=== PATIENT | female | born 1965 | race African-American/Black ===

== ENCOUNTER 2016-07-22 07:21 | Inpatient (IN) | payer OTHER ==
[~2016-07-22] VITALS: Ht 167.6 cm; Wt 84.7 kg
[2016-07-22] VITALS (9 sets, daily range): BP systolic 129–212; BP diastolic 74–98; PULSE 53–73; RESP 15–18; TEMP 97.3–98.1; O2SAT 96–100
[~2016-07-22 07:21] MED LIST: LISI-360 PO; ST J81CH PO
--- NOTE | 2016-07-22 07:30 | PD ---
Physical Exam Date Seen by Provider: Jul 22, 2016 Time Seen by Provider: 07:30 Narrative Pt presents with c/o right hand weakness, onset this morning. Pt states her arm feels heavy. This occurred one month ago. Pt states she has been doing new exercises. Denies any other complaints at this time. Pt being bedded at this time. BP significantly elevated. MDM Supervised Visit with JOSÉ LUIS: Elena Hamilton Jul 22, 2016 07:30
[2016-07-22] MEDS ORDERED: SODIUM CHLOR 0.9% 1000 ML INJ 1,000 ML IV ONE (07:40)
--- NOTE | 2016-07-22 07:48 | PD ---
HPI Chief Complaint: Numbness/Tingling Time Seen by Provider: 07:40 Travel History International Travel<30 days: No Contact w/Intl Traveler<30days: No Traveled to known affect area: No History of Present Illness HPI 51-year-old female states she went to bed at 11pm with mild headache only and awoke this morning around 5 when she had difficulty using her phone and her right arm. She denies other complaints. She states she had the symptoms first thing when she woke up. She states that she also feels funny near her right hip area. She confirms prior history of mini strokes with her last in 2009. She states she takes a full aspirin every day but did not take one yet today. She states that she is not on any blood pressure medication and she has had constantly elevated blood pressure lately. She states she cannot get in with her primary care doctor until August. She states that she has no other concurrent complaints other than being tired all over. PFSH Past Medical History Anemia: Yes Asthma: Yes Blood Disorders: No (ANEMIA) Cancer: No Chemotherapy: No Cerebrovascular Accident: Yes (first many stroke 2008, last in 2009; takes Aspirin) Diabetes: No Diminished Hearing: No Endocrine: No Gastrointestinal Disorders: No Glaucoma: No Genitourinary: No Hepatitis: No Hiatal Hernia: No Hypertension: Yes (on no medication) Immune Disorder: No Implanted Vascular Access Dvce: No Medical other: Yes (ANEMIA WITH MULT TRANSFUSIONS) Musculoskeletal: No Psychiatric: Yes ("SOMETIMES" CLAUSTROPHOBIC) Radiation Therapy: No Thyroid Disease: No ?: Unknown : 2 Para: 2 Tubal Ligation: Yes Past Surgical History Abdominal Surgery: No AICD: No Cardiac Surgery: No Ear Surgery: No Endocrine Surgery: No Eye Surgery: No Genitourinary Surgery: No Gynecologic Surgery: Yes (TUBAL LIGATION, UTERINE ABLATION ) Hysterectomy: Yes Joint Replacement: No Neurologic Surgery: No Oral Surgery: No Pacemaker: No Thoracic Surgery: No Social History Alcohol Use: No Tobacco Use: No Substance Use: No Allergies-Medications (Allergen,Severity, Reaction): Coded Allergies: No Known Allergies (Verified , 12/21/15) Reported Meds & Prescriptions Reported Meds & Active Scripts Active Lisinopril 10 mg (Lisinopril) 10 Mg Tab 1 Tab PO DAILY Reported Aspirin 81 mg chewable (Aspirin) 81 Mg Chw 81 Mg PO DAILY Review of Systems Except as stated in HPI: all other systems reviewed are Neg Physical Exam Narrative GENERAL: Well-nourished, well-developed patient. SKIN: Warm and dry. HEAD: Normocephalic and atraumatic. EYES: No injection or drainage. ENT: No nasal drainage noted. NECK: Supple, trachea midline. CARDIOVASCULAR: Regular rate and rhythm RESPIRATORY: Breath sounds equal bilaterally. No accessory muscle use. GASTROINTESTINAL: Abdomen soft, non-tender, nondistended. EXTREMITIES: No edema. NEUROLOGICAL: Awake and alert. Decreased grasp on the right, mild right sided pronator drift, both right and left leg drop after 5 seconds. Normal speech. Data Data Last Documented VS Vital Signs Date Time Temp Pulse Resp B/P Pulse Ox O2 Delivery O2 Flow Rate FiO2 07/22/16 07:44 18 100 07/22/16 07:34 79 Room Air 07/22/16 07:32 98.1 212/98 Orders Activity Bed Rest (07/22/16 ) Electrocardiogram (07/22/16 ) Prothrombin Time / Inr (Pt) (07/22/16 07:40) Act Partial Throm Time (Ptt) (07/22/16 07:40) Complete Blood Count With Diff (07/22/16 07:40) Fibrinogen (07/22/16 07:40) Creatine Kinase (Cpk) (07/22/16 07:40) Troponin I (07/22/16 07:40) Ua Includes Microscopic (07/22/16 07:40) Drug Screen, Random Urine (07/22/16 07:40) Type And Screen (07/22/16 07:40) Ct Brain W/O Iv Contrast(Rout) (07/22/16 ) Chest, Single Ap (07/22/16 ) Blood Glucose (07/22/16 07:40) Ecg Monitoring (07/22/16 07:40) Iv Access Insert/Monitor (07/22/16 07:40) NPO (07/22/16 07:40) Oximetry (07/22/16 07:40) Sodium Chlor 0.9% 1000 Ml Inj (Ns 1000 M (07/22/16 07:40) Comprehensive Metabolic Panel (07/22/16 07:40) Nursing Bedside Swallow Assess .ONCE (07/22/16 08:11) Clopidogrel (Plavix) (07/22/16 08:45) Aspirin (Aspirin) (07/22/16 08:45) Admit To Inpatient (07/22/16 ) Code Status (07/22/16 08:54) Vital Signs (Adult) Q4H (07/22/16 08:54) Activity Oob With Assistance (07/22/16 08:54) Mailroom Messenger / Telemetry .CONTINUOUS (07/22/16 08:54) Diet Heart Healthy (07/22/16 Breakfast) Sodium Chloride 0.9% Flush (Ns Flush) (07/22/16 09:00) Sodium Chloride 0.9% Flush (Ns Flush) (07/22/16 09:00) Acetaminophen (Tylenol) (07/22/16 09:00) Ondansetron Inj (Zofran Inj) (07/22/16 09:00) Magnesium Hydroxide Liq (Milk Of Magnesi (07/22/16 09:00) Temazepam (Restoril) (07/22/16 21:00) Basic Metabolic Panel (Bmp) (07/23/16 06:00) Complete Blood Count With Diff (07/23/16 06:00) Resp Oxygen Nghia C Titrat 1-4 L (07/22/16 ) Pt Request For Service (07/22/16 08:54) Enoxaparin Inj (Lovenox Inj) (07/22/16 10:00) Naloxone Inj (Narcan Inj) (07/22/16 09:00) Inpatient Certification (07/22/16 ) Nih Stroke Scale - Nihss .On admission and discharge (07/22/16 08:57) Neuro Checks Q2HX12,Q4H (07/22/16 08:57) ^ Notify Dr: Other (07/22/16 08:57) Activity Bed Rest (07/22/16 08:57) Nursing Bedside Swallow Assess .ONCE (07/22/16 08:57) Hemoglobin (Hgb) A1c (07/22/16 08:57) Lipid Profile (07/23/16 06:00) Us Carotid Arteries Comp Bilat (07/22/16 ) Holter Monitor Recording (07/22/16 ) Mra Brain W/O Contrast (Cow) (07/22/16 ) Echo 2d Comp W/Dopp(Routine) (07/22/16 ) Sodium Chlor 0.9% 1000 Ml Inj (Ns 1000 M (07/22/16 08:57) Enalaprilat Inj (Vasotec Inj) (07/22/16 09:00) Labetalol Inj (Trandate Inj) (07/22/16 09:00) Aspirin (Aspirin) (07/22/16 10:00) Consult Stoke Navigator (07/22/16 ) Beta Hcg (Quant/Titer) (07/22/16 08:57) Lorazepam Inj (Ativan Inj) (07/22/16 09:00) Admit Order (Ed Use Only) (07/22/16 09:06) Mri Brain W/O Contrast (07/22/16 ) Labs Laboratory Tests Test 07/22/16 07/22/16 07:45 08:50 White Blood Count 5.0 TH/MM3 Red Blood Count 4.86 MIL/MM3 Hemoglobin 13.6 GM/DL Hematocrit 41.5 % Mean Corpuscular Volume 85.4 FL Mean Corpuscular Hemoglobin 28.0 PG Mean Corpuscular Hemoglobin 32.8 % Concent Red Cell Distribution Width 14.1 % Platelet Count 220 TH/MM3 Mean Platelet Volume 8.2 FL Neutrophils (%) (Auto) 39.3 % Lymphocytes (%) (Auto) 48.3 % Monocytes (%) (Auto) 8.1 % Eosinophils (%) (Auto) 3.5 % Basophils (%) (Auto) 0.8 % Neutrophils # (Auto) 2.0 TH/MM3 Lymphocytes # (Auto) 2.4 TH/MM3 Monocytes # (Auto) 0.4 TH/MM3 Eosinophils # (Auto) 0.2 TH/MM3 Basophils # (Auto) 0.0 TH/MM3 CBC Comment DIFF FINAL Differential Comment Prothrombin Time 10.4 SEC Prothromb Time International 0.9 RATIO Ratio Activated Partial 26.8 SEC Thromboplast Time Fibrinogen 253 mg/dL Sodium Level 142 MEQ/L Potassium Level 3.3 MEQ/L Chloride Level 106 MEQ/L Carbon Dioxide Level 29.5 MEQ/L Anion Gap 7 MEQ/L Blood Urea Nitrogen 14 MG/DL Creatinine 0.91 MG/DL Estimat Glomerular Filtration 79 ML/MIN Rate Random Glucose 57 MG/DL Calcium Level 9.2 MG/DL Total Bilirubin 0.7 MG/DL Aspartate Amino Transf 17 U/L (AST/SGOT) Alanine Aminotransferase 26 U/L (ALT/SGPT) Alkaline Phosphatase 85 U/L Total Creatine Kinase 135 U/L Troponin I LESS THAN 0.02 NG/ML Total Protein 8.4 GM/DL Albumin 4.0 GM/DL Blood Type O POSITIVE Antibody Screen NEGATIVE Urine Color LIGHT-YELLOW Urine Turbidity CLEAR Urine pH 5.5 Urine Specific [place] 1.008 Urine Protein NEG mg/dL Urine Glucose (UA) NEG mg/dL Urine Ketones NEG mg/dL Urine Occult Blood TRACE Urine Nitrite NEG Urine Bilirubin NEG Urine Urobilinogen LESS THAN 2.0 MG/DL Urine Leukocyte Esterase NEG Urine RBC 1 /hpf Urine WBC 1 /hpf Urine Squamous Epithelial 1 /hpf Cells Urine Hyaline Casts 1 /lpf Urine Opiates Screen NEG Urine Barbiturates Screen NEG Urine Amphetamines Screen NEG Urine Benzodiazepines Screen NEG Urine Cocaine Screen NEG Urine Cannabinoids Screen NEG MDM Medical Decision Making Medical Screen Exam Complete: Yes Emergency Medical Condition: Yes Medical Record Reviewed: Yes (pmh confirmed) Interpretation(s) EKG shows NSR, no ST elevation or depression, and no arrhythmias. No significant T-wave inversions. CBC & BMP Diagram 07/22/16 07:45 Last [address] 07/22/16 0000 Signed Impressions: Service Date/Time: Friday, July 22, 2016 07:45 - CONCLUSION: Negative for acute process. Edmond Hall MD FACR Chest X-Ray 07/22/16 0000 Signed Impressions: Service Date/Time: Friday, July 22, 2016 07:55 - CONCLUSION: No acute disease. Edmond Hall MD FACR Differential Diagnosis TIA, bleed, stroke, mass Narrative Course Will check blood work, imaging and monitor. Out of stroke alert window given woke up with symptoms with unknown timeline ed workup no acute, will discuss with neurology patient agrees to admit Physician Communication Physician Communication dr fuentes states to check mri brain with and without, dose with 75 mg of plavix in addition to aspirin [address] [place]ar[place] agrees to admit Diagnosis Primary Impression: Right arm weakness Admitting Information Admitting Physician Requests: Admit Delmy Newsome MD Jul 22, 2016 07:48
[2016-07-22 08:03] LABS: BASOPHIL % 0.8 % (0.0-2.0); EOSINOPHIL # 0.2 TH/MM3 (0-0.4); EOSINOPHIL % 3.5 % (0.0-4.0); HEMATOCRIT 41.5 % (35.0-46.0); HEMO FLAGS DIFF FINAL; LYMPH % 48.3 % (9.0-44.0); LYMPHOCYTE # 2.4 TH/MM3 (1.0-4.8); MEAN CELL VOLUME 85.4 FL (80.0-100.0); MEAN CORPUSCULAR HGB CONC 32.8 % (32.0-36.0); MONO % 8.1 % (0.0-8.0); NEUT % 39.3 % (16.0-70.0); PLATELET COUNT 220 TH/MM3 (150-450); RED BLOOD COUNT 4.86 MIL/MM3 (4.00-5.30); RED CELL DISTRIBUTION WIDTH 14.1 % (11.6-17.2)
--- NOTE | 2016-07-22 08:05 | RADRPT ---
EXAM DATE/TIME: 07/22/2016 07:45 [facility] COMPARISON: CT BRAIN W/O CONTRAST, December 21, 2015, 18:14. INDICATIONS : Right upper arm weakness today. RADIATION DOSE: 56.35 CTDIvol (mGy) MEDICAL HISTORY : Hypertension. Stroke SURGICAL HISTORY : Hysterectomy. ENCOUNTER: Initial ACUITY: 1 day PAIN SCALE: 0/10 LOCATION: Bilateral head TECHNIQUE: Multiple contiguous axial images were obtained of the head. Using automated exposure control and adjustment of the mA and/or kV according to patient size, radiation dose was kept as low as reasonably achievable to obtain optimal diagnostic quality images. FINDINGS: CEREBRUM: The ventricles are normal for age. No evidence of midline shift, mass lesion, hemorrha ge or acute infarction. No extra-axial fluid collections are seen. POSTERIOR FOSSA: The cerebellum and brainstem are intact. The 4th ventricle is midline. The cer ebellopontine angle is unremarkable. EXTRACRANIAL: The visualized portion of the orbits is intact. SKULL: The calvaria is intact. No evidence of skull fracture. CONCLUSION: Negative for acute process. Edmond Hall MD FACR on July 22, 2016 at 8:03 Board Certified Radiologist. This report was verified electronically.
--- NOTE | 2016-07-22 08:19 | RADRPT ---
EXAM DATE/TIME: 07/22/2016 07:55 [facility] COMPARISON: No previous studies available for comparison. INDICATIONS : Palpitations, chest pain. Right arm numbness. MEDICAL HISTORY : Cerebrovascular disease. Hypertension. SURGICAL HISTORY : Hysterectomy. ENCOUNTER: Initial ACUITY: 1 day PAIN SCORE: 0/10 LOCATION: Bilateral chest FINDINGS: A single view of the chest demonstrates the lungs to be symmetrically aerated without evidence of mas s, infiltrate or effusion. The cardiomediastinal contours are unremarkable. Osseous structures are intact. CONCLUSION: No acute disease. Edmond Hall MD FACR on July 22, 2016 at 8:17 Board Certified Radiologist. This report was verified electronically.
[2016-07-22 08:21] LABS: ALT (GPT) 26 U/L (10-53); ANION GAP 7 MEQ/L (5-15); AST (GOT) 17 U/L (15-37); BICARBONATE 29.5 MEQ/L (21.0-32.0); BLOOD UREA NITROGEN 14 MG/DL (7-18); CHLORIDE 106 MEQ/L (98-107); GLOMERULAR FILTRATION RATE 79 ML/MIN (>89); POTASSIUM 3.3 MEQ/L (3.5-5.1); SODIUM (NA) 142 MEQ/L (136-145)
[2016-07-22 08:22] LABS: APTT (PATIENT) 26.8 SEC (24.3-30.1); INTERNATIONAL NORMALIZED RATIO 0.9 RATIO; PROTHROMBIN TIME - PATIENT 10.4 SEC (9.8-11.6)
[2016-07-22 08:24] LABS: ALKALINE PHOSPHATASE 85 U/L (45-117); CREATINE KINASE 135 U/L (26-192); TOTAL BILIRUBIN ADULT 0.7 MG/DL (0.2-1.0)
[2016-07-22] MEDS ORDERED: ASPIRIN 325 MG TAB PO ONE (08:45)
[2016-07-22] MEDS ORDERED: CLOPIDOGREL 75 MG TAB PO ONE (08:45)
[2016-07-22] MEDS: SODIUM CHLOR 0.9% 1000 ML INJ 1,000 ML IV SCH ×2 (08:57→23:26)
[2016-07-22] MEDS ORDERED: ONDANSETRON HCL 4 MG/2 ML VIAL IVP PRN (09:00)
[2016-07-22] MEDS ORDERED: SODIUM CHLORIDE 0.9% FLUSH 10 ML FLUSH IV FLUSH PRN (09:00)
[2016-07-22] MEDS ORDERED: NALOXONE HCL 0.4 MG/ML AMP IV PRN (09:00)
[2016-07-22] MEDS ORDERED: MAGNESIUM HYDROXIDE SUSP 30 ML CUP PO PRN (09:00)
[2016-07-22] MEDS ORDERED: LORazepam 2 MG/ML VIAL IV PUSH PRN (09:00)
[2016-07-22] MEDS ORDERED: ACETAMINOPHEN 325 MG TAB PO PRN (09:00)
[2016-07-22] MEDS ORDERED: ENALAPRILAT 1.25 MG/ML VIAL IV PRN (09:00)
[2016-07-22] MEDS ORDERED: LABETALOL HCL 100 MG/20 ML VIAL IV PRN (09:00)
[2016-07-22] MEDS: SODIUM CHLORIDE 0.9% FLUSH 10 ML FLUSH IV FLUSH SCH ×2 (09:05→20:30)
[2016-07-22 09:28] LABS: BLOOD, URINE TRACE (NEG); GLUCOSE,URINE NEG (NEG); HYALINE CAST, URINE 1 /lpf (RARE); KETONE, URINE NEG (NEG); NITRITE,URINE NEG (NEG); PH, URINE 5.5 (5.0-8.5); SQUAMOUS EPITHELIAL CELL URINE 1 /hpf (0-5); URINE COLOR LIGHT-YELLOW (YELLW/STRAW)
[2016-07-22 09:38] LABS: AMPHETAMINE, URINE NEG (NEG); BARBITURATES, URINE NEG (NEG); COCAINE, URINE NEG (NEG)
[2016-07-22] MEDS ORDERED: ASPIRIN 325 MG TAB PO SCH (10:00)
[2016-07-22] MEDS ORDERED: ENOXAPARIN SODIUM 30 MG/0.3 ML SYRINGE SQ SCH (10:00)
--- NOTE | 2016-07-22 10:16 | RADRPT ---
EXAM DATE/TIME: 07/22/2016 09:40 [facility] COMPARISON: No previous studies available for comparison. INDICATIONS : Right sided weakness. MEDICAL HISTORY : Hypertension. SURGICAL HISTORY : Tubal ligation. Hysterectomy. ENCOUNTER: Initial ACUITY: 1 day PAIN SCORE: 0/10 LOCATION: cranial Please note a normal MRA of the brain does not entirely exclude the possibility of a small aneurysm, nor the possibility of distal intracranial vessel disease. TECHNIQUE: 3D time of flight MRA was performed. Source images, multiplanar STS MIP, and 3D volume MIP reconstru ctions were reviewed. FINDINGS: There is excellent visualization of the major intracranial arteries out to the second-order branch ve ssels. There is no evidence for aneurysm, vessel truncation or stenosis, and no evidence for vascula r malformation. CONCLUSION: Negative MRA of the brain. Edmond Hall MD FACR on July 22, 2016 at 10:14 Board Certified Radiologist. This report was verified electronically.
--- NOTE | 2016-07-22 10:18 | RADRPT ---
EXAM DATE/TIME: 07/22/2016 09:40 [facility] COMPARISON: No previous studies available for comparison. INDICATIONS : Right sided weakness. MEDICAL HISTORY : Hypertension. SURGICAL HISTORY : Hysterectomy. Tubal ligation. ENCOUNTER: Initial ACUITY: 1 day PAIN SCORE: 0/10 LOCATION: cranial TECHNIQUE: Multiplanar, multisequence MRI of the brain was performed without contrast. FINDINGS: CEREBRUM: The ventricles are normal for age. No evidence of midline shift, mass lesion, hemorrhage or acute in farction. No extraaxial fluid collections are seen. The pituitary gland and suprasellar cistern are normal in configuration. WHITE MATTER: No significant signal abnormalities are seen in the white matter. POSTERIOR FOSSA: The cerebellum and brainstem are intact. The 4th ventricle is midline. The cerebellopontine angle is unremarkable. The cerebellar tonsils are normal in position. DIFFUSION IMAGING: No focal areas of restricted diffusion are seen. No evidence of acute infarction. EXTRACRANIAL: The visualized portions of the orbits and paranasal sinuses are unremarkable. CONCLUSION: Negative for ischemic changes. Borderline changes of an empty sella.. dEmond Hall MD FACR on July 22, 2016 at 10:15 Board Certified Radiologist. This report was verified electronically.
--- NOTE | 2016-07-22 10:52 | RADRPT ---
EXAM DATE/TIME: 07/22/2016 10:14 [facility] COMPARISON: No previous studies available for comparison. INDICATIONS : Transient ischemic attack. MEDICAL HISTORY : Hypertension. CVA. Asthma. Colitis. Anemia. Anticoagulant therapy, Aspirin. SURGICAL HISTORY : Tubal ligation. Hysterectomy. Fibroid removed. Uterine ablation. Blood transfusions. ENCOUNTER: Initial ACUITY: 1 day PAIN SCORE: 0/10 LOCATION: Bilateral neck PEAK SYSTOLIC VELOCITIES (cm/sec): ICA/CCA RATIO: Right: 1.1 Left: 0.9 ICA: Right: 82 Left: 58 CCA: Right: 77 Left: 67 ECA: Right: 60 Left: 80 VERTEBRAL: Right: 45 antegrade Left: 44 antegrade Elevated flow velocities and ICA/CCA ratios have been found to correlate with increased degrees of vessel stenosis, calculated as percentage of diameter relative to a normal segment of distal ICA/CCA FINDINGS: RIGHT CAROTID: No significant stenosis is visualized. The waveforms are within normal limits. LEFT CAROTID: No significant stenosis is visualized. The waveforms are within normal limits. VERTEBRAL ARTERIES: Antegrade flow is seen in both vertebral arteries. MISCELLANEOUS: None. CONCLUSION: Negative carotid ultrasound. Edmond Hall MD FACR on July 22, 2016 at 10:49 Board Certified Radiologist. This report was verified electronically.
[2016-07-22 11:47] LABS: BETA HCG QUANT 2 MIU/ML (0-5); FREE T4 0.85 NG/DL (0.76-1.46)
[2016-07-22] MEDS ORDERED: GADODIAMIDE PF 287 MG/ML 20 ML VIAL (for RAD MRI) IV ONE (13:37)
--- NOTE | 2016-07-22 13:57 | RADRPT ---
EXAM DATE/TIME: 07/22/2016 13:26 [facility] COMPARISON: No previous studies available for comparison. INDICATIONS : Right side weakness. CONTRAST: 20 cc Omniscan (gadodiamide) IV MEDICAL HISTORY : Hypertension. SURGICAL HISTORY : Hysterectomy. Tubal ligation. ENCOUNTER: Initial ACUITY: 1 day PAIN SCORE: 0/10 LOCATION: neck Percent stenosis is calculated using the diameter of the stenotic region over the diameter of the nor mal distal internal carotid artery. TECHNIQUE: Bolus infused MRA of the extracranial circulation was performed using a neurovascular coil. Post processing was performed including rotating subvolume maximum intensity projections of ea ch carotid artery, rotating full volume maximum intensity projections of both carotid arteries, sagit fred and coronal sliding thin slab reformations of each carotid artery, and left oblique sliding thin slab reformation through the aortic arch to include the origin of the arch branch vessels. FINDINGS: AORTIC ARCH: There is a three vessel origin of the great vessels from the aorta. No evidence of ostial narrowing. RIGHT CAROTID: The common carotid artery is intact. The carotid bulb has a normal configuration without ulceration or narrowing. The internal carotid artery lumen is smooth without stenosis. The external carotid artery is intact. LEFT CAROTID: The common carotid artery is intact. The carotid bulb has a normal configuration w ithout ulceration or narrowing. The internal carotid artery lumen is smooth without stenosis. The e xternal carotid artery is intact. VERTEBRALS: The vertebral arteries have a symmetric diameter. No stenotic lesions are seen. CONCLUSION: Negative for hemodynamically significant stenosis. Edmond Hall MD FACR on July 22, 2016 at 13:55 Board Certified Radiologist. This report was verified electronically.
--- NOTE | 2016-07-22 15:35 | HHI.HP ---
HPI Service [facility] Primary Care Physician Arun Pacheco M.D. Admission Diagnosis right arm weakness Chief Complaint: right arm weakness Travel History International Travel<30 Days: No Contact w/Intl Traveler <30 Da: No Traveled to Known Affected Are: No History of Present Illness Patient is a pleasant 51-year-old female who presented to the ER with complaint of right arm weakness. Patient reports that she had a mild headache when she went to bed last night at 11 PM upon awakening at 5 PM patient had difficulty using her right arm to utilize her phone. Patient states that she has chronically elevated blood pressure but does not take any medication for this. Patient gives history of prior stroke. However, I have reviewed the patient's records from 2008 in [facility]. At that time patient also complained of weakness. Patient was anemic due to EPIDEMIOLOGIST issues and subsequently had a hysteroscopy with dilation and curettage in [address] Wright. Patient was seen in [address] Silva as well as Dr. Wheatley. At that time, neurology felt the patient likely had conversion disorder and there was no evidence of CVA. However, from Dr. Wheatley' note 01/08/17 - pt recieved coumadin [id number] - in 2010 pt started ASA - in 2010 pt resumed coumadin, but then again went back to ASA 325mg - Pt continued to have difficulties with uterine bleeding and underwent hysterectomy in 2013 - negative anti-phospholipid antibodies in 2008 - Pt never seems to have had residual neurologic deficits from these prior neurologic episodes. Review of Systems Constitutional: DENIES: Diaphoretic episodes, Fatigue, Fever, Weight gain, Weight loss, Chills, Dizziness, Change in appetite, Night Sweats Endocrine: DENIES: Heat/cold intolerance, Polydipsia, Polyuria, Polyphagia Eyes: DENIES: Blurred vision, Diplopia, Eye inflammation, Eye pain, Vision loss , Photosensitivity, Double Vision Ears, nose, mouth, throat: DENIES: Tinnitus, Hearing loss, Vertigo, Nasal discharge, Oral lesions, Throat pain, Hoarseness, Ear Pain, Running Nose, Epistaxis, Sinus Pain, Toothache, Odynophagia Respiratory: DENIES: Apneas, Cough, Snoring, Wheezing, Hemoptysis, Sputum production, Shortness of breath Cardiovascular: DENIES: Chest pain, Palpitations, Syncope, Dyspnea on Exertion , PND, Lower Extremity Edema, Orthopnea, Claudication Gastrointestinal: DENIES: Abdominal pain, Black stools, Bloody stools, BRB per rectum, Constipation, Diarrhea, GERD, Nausea, Reflux, Vomiting, Difficulty Swallowing, Anorexia Genitourinary: DENIES: Abnormal vaginal bleeding, Dysmenorrhea, Dyspareunia, Sexual dysfunction, Urinary frequency, Urinary incontinence, Urgency, Hematuria , Dysuria, Nocturia Musculoskeletal: DENIES: Joint pain, Muscle aches, Stiffness, Joint Swelling, Back pain, Neck pain Integumentary: DENIES: Abnormal pigmentation, Pruritus, Rash, Nail changes, Breast masses, Breast skin changes, Nipple discharge Hematologic/lymphatic: DENIES: Bruising, Lymphadenopathy Immunologic/allergic: DENIES: Eczema, Urticaria Neurologic: COMPLAINS OF: Headache, Localized weakness, DENIES: Abnormal gait , Paresthesias, Seizures, Speech Problems, Tremor, Poor Balance Psychiatric: DENIES: Anxiety, Confusion, Mood changes, Depression, Hallucinations, Agitation, Suicidal Ideation, Homicidal Ideation, Delusions, History of Bipolar, History of Schizophrenia Past Family Social History Past Medical History 1) anemia, which seems to have resolved following hysterectomy 2) prior neurological episode in 2008 - I have reviewed patient's hospitalization records from 2008 - At that time neurology was not convinced that patient had a CVA, and felt the more likely explanation was conversion disorder - pt was subsequently placed on coumadin for some time, see HPI 3) hypertension Past Surgical History 1) hysteroscopy with dilation and curettage [place] [address] Wright 2) tubal ligation Reported Medications Reported Meds & Active Scripts Active Lisinopril 10 mg (Lisinopril) 10 Mg Tab 1 Tab PO DAILY Reported Aspirin 81 mg chewable (Aspirin) 81 Mg Chw 81 Mg PO DAILY Allergies: Coded Allergies: No Known Allergies (Verified , 12/21/15) Family History Noncontributory Social History - No tobacco use - No alcohol use - No illicit street drugs Physical Exam Vital Signs Vital Signs Date Time Temp Pulse Resp B/P Pulse Ox O2 Delivery O2 Flow Rate FiO2 07/22/16 12:51 62 16 154/92 98 07/22/16 10:58 68 16 144/89 99 Room Air 07/22/16 09:30 72 17 145/74 98 Room Air 07/22/16 07:44 18 100 07/22/16 07:34 79 18 Room Air 07/22/16 07:32 98.1 72 15 212/98 98 Physical Exam GENERAL: This is a well-nourished, well-developed patient, in no apparent distress. SKIN: No rashes, ecchymoses or lesions. Cool and dry. HEAD: Atraumatic. Normocephalic. No temporal or scalp tenderness. EYES: Pupils equal round and reactive. Extraocular motions intact. No scleral icterus. No injection or drainage. ENT: Nose without bleeding, purulent drainage or septal hematoma. Throat without erythema, tonsillar hypertrophy or exudate. Uvula midline. Airway patent. NECK: Trachea midline. No JVD or lymphadenopathy. Supple, nontender, no meningeal signs. CARDIOVASCULAR: Regular rate and rhythm without murmurs, gallops, or rubs. RESPIRATORY: Clear to auscultation. Breath sounds equal bilaterally. No wheezes , rales, or rhonchi. GASTROINTESTINAL: Abdomen soft, non-tender, nondistended. No hepato-splenomegaly , or palpable masses. No guarding. MUSCULOSKELETAL: mild RLE weakness, mild RUE, Per pt she has been able to ambulate to the bathroom. NEUROLOGICAL: Awake and alert. Cranial nerves II through XII intact. Motor and sensory grossly within normal limits. Five out of 5 muscle strength in all muscle groups. Normal speech. Laboratory Laboratory Tests Test 07/22/16 07/22/16 07/22/16 07:45 08:50 10:46 White Blood Count 5.0 Red Blood Count 4.86 Hemoglobin 13.6 Hematocrit 41.5 Mean Corpuscular Volume 85.4 Mean Corpuscular Hemoglobin 28.0 Mean Corpuscular Hemoglobin 32.8 Concent Red Cell Distribution Width 14.1 Platelet Count 220 Mean Platelet Volume 8.2 Neutrophils (%) (Auto) 39.3 Lymphocytes (%) (Auto) 48.3 Monocytes (%) (Auto) 8.1 Eosinophils (%) (Auto) 3.5 Basophils (%) (Auto) 0.8 Neutrophils # (Auto) 2.0 Lymphocytes # (Auto) 2.4 Monocytes # (Auto) 0.4 Eosinophils # (Auto) 0.2 Basophils # (Auto) 0.0 CBC Comment DIFF FINAL Differential Comment Prothrombin Time 10.4 Prothromb Time International 0.9 Ratio Activated Partial 26.8 Thromboplast Time Fibrinogen 253 Sodium Level 142 Potassium Level 3.3 Chloride Level 106 Carbon Dioxide Level 29.5 Anion Gap 7 Blood Urea Nitrogen 14 Creatinine 0.91 Estimat Glomerular Filtration 79 Rate Random Glucose 57 Calcium Level 9.2 Total Bilirubin 0.7 Aspartate Amino Transf 17 (AST/SGOT) Alanine Aminotransferase 26 (ALT/SGPT) Alkaline Phosphatase 85 Total Creatine Kinase 135 Troponin I LESS THAN 0.02 Total Protein 8.4 Albumin 4.0 Blood Type O POSITIVE Antibody Screen NEGATIVE Crossmatch Leukocyte-Reduced Red Blood Cells Blood Bank Comment Urine Color LIGHT-YELLOW Urine Turbidity CLEAR Urine pH 5.5 Urine Specific [place] 1.008 Urine Protein NEG Urine Glucose (UA) NEG Urine Ketones NEG Urine Occult Blood TRACE Urine Nitrite NEG Urine Bilirubin NEG Urine Urobilinogen LESS THAN 2.0 Urine Leukocyte Esterase NEG Urine RBC 1 Urine WBC 1 Urine Squamous Epithelial 1 Cells Urine Hyaline Casts 1 Urine Opiates Screen NEG Urine Barbiturates Screen NEG Urine Amphetamines Screen NEG Urine Benzodiazepines Screen NEG Urine Cocaine Screen NEG Urine Cannabinoids Screen NEG Ammonia 21 Vitamin B12 Level 227 Folate 11.7 Free Thyroxine 0.85 Thyroid Stimulating Hormone 1.330 3rd Gen Human Chorionic Gonadotropin, 2 Quant Result Diagram: 07/22/16 0745 07/22/16 0745 Imaging Last Impressions Neck Magnetic Resonance Angiography 07/22/16 1253 Signed Impressions: Service Date/Time: Friday, July 22, 2016 13:26 - CONCLUSION: Negative for hemodynamically significant stenosis. Edmond Hall MD FACR Head Magnetic Resonance Angiography 07/22/16 0000 Signed Impressions: Service Date/Time: Friday, July 22, 2016 09:40 - CONCLUSION: Negative MRA of the brain. Edmond Hall MD FACR Head CT 07/22/16 0000 Signed Impressions: Service Date/Time: Friday, July 22, 2016 07:45 - CONCLUSION: Negative for acute process. Edmond Hall MD FACR Chest X-Ray 07/22/16 0000 Signed Impressions: Service Date/Time: Friday, July 22, 2016 07:55 - CONCLUSION: No acute disease. Edmond Hall MD FACR Carotid Artery Ultrasound 07/22/16 0000 Signed Impressions: Service Date/Time: Friday, July 22, 2016 10:14 - CONCLUSION: Negative carotid ultrasound. Edmond Hall MD FACR Brain MRI 07/22/16 0000 Signed Impressions: Service Date/Time: Friday, July 22, 2016 09:40 - CONCLUSION: Negative for ischemic changes. Borderline changes of an empty sella.. Edmond Hall MD FACR Septic Shock Reassessment Heart: Regular rate and rhythm Lungs: Clear Skin: Warm Peripheral Pulses: Bounding Right Radial Bounding Left Radial Bounding Right Popliteal Bounding Left Popliteal Bounding Right Dorsalis Pedis Bounding Left Dorsalis Pedis Bounding Right Posterior Tibial Bounding Left Posterior Tibial Capillary Refill: Brisk Assessment and Plan Problem List: (1) Right arm weakness Status: Acute Plan: - Patient had episode of weakness in 2008. At that time neurology was not convinced of CVA and felt that patient likely had conversion disorder - CT brain (07/22/16) no acute findings - MRI brain (07/22/16) no acute findings - MRA brain (07/22/16) no acute findings - Neck MRA (07/22/16) no hemodynamically significant stenosis - Bilateral carotid ultrasound (07/22/16) no hemodynamically significant stenosis - TSH, free T4, B-12, folate, ammonia --> wnl - RPR --> pending - Await Neurology consult - Consult Physiatry - fasting lipid panel in AM - HgA1C --> pending - ASA - Coumadin per Neurology - Heparin per Neurology - Permissive HTN - Echocardiogram --> pending - anticipate d/c to home in 1-2 days - hypercoag panel ordered by neurology (2) HTN (hypertension) Status: Chronic Plan: - lisinopril is on hold for permissive HTN - prn IV vasotec - PRN IV trandate Physician Certification 2 Midnight Certification Type: Admission for Inpatient Services Order for Inpatient Services The services are ordered in accordance with Medicare regulations or non- Medicare payer requirements, as applicable. In the case of services not specified as inpatient-only, they are appropriately provided as inpatient services in accordance with the 2-midnight benchmark. Estimated LOS (days): 3 3 days is the estimated time the patient will need to remain in the hospital, assuming treatment plan goals are met and no additional complications. Post-Hospital Plan: Home Problem Qualifiers (1) HTN (hypertension): Qualified Code: I10 - Essential hypertension Nguyễn Hanson DO Jul 22, 2016 15:35
[2016-07-22] MEDS ORDERED: WARFARIN SOD 5 MG TAB PO SCH (16:00)
[2016-07-22 16:32] LABS: TOTAL PROTEIN SPE 7.4 GM/DL (6.0-7.6)
[2016-07-22] MEDS: HEPARIN SODIUM - SQ 10,000 UNITS/ML VIAL SQ SCH ×2 (16:47→20:30)
[2016-07-22] MEDS ORDERED: TEMAZEPAM 15 MG CAP PO PRN (21:00)
--- NOTE | 2016-07-22 22:32 | MB ---
cc: RAN MAYNARD M.D. DATE OF CONSULTATION 07/22/2016 REASON FOR CONSULTATION A 51-year-old right-handed woman with a history of hypertension. She was on Coumadin at one time after a stroke she tells me in 2008. Two miscarriages. A DVT when she was 20. Takes 325 of aspirin a day. She has occasional headaches but not severe. When she was younger she used to have some migraine headaches. headaches. In 2008 she tells me she had a stroke with a headache and high blood pressure and then a TIA in 2009 again with a headache and a blood pressure up. This morning she woke up and her right hand did not seem to work right and walking her right leg seemed off. She had a headache on the top of her head and the back of her head which was fairly severe. She says she had some palpitations about several weeks ago which were brief. No panic attacks or depression. SOCIAL HISTORY She is not a smoker. Occasionally is a drinker. Lives by herself. No drugs. FAMILY HISTORY Positive for cancer, positive for seizures in a daughter and a nephew. Positive for stroke in multiple people including an aunt when she was in her 40s. ALLERGIES NO KNOWN DRUG ALLERGIES. MEDICATIONS 1. Lisinopril. 2. She is on 325 of aspirin a day. REVIEW OF SYSTEMS She denied any diabetes, hypercholesterolemia, UT, stent angioplasty, A fib, CABG, renal, hepatic, pulmonary disease, thyroid disease, lupus, ulcer, cancer, seizure. PAST MEDICAL HISTORY As above. PHYSICAL EXAMINATION VITAL SIGNS: Initially blood pressure is high as 212/98, came down to 144/98, 16, 68, afebrile. She has been in sinus rhythm. NECK: There were no carotid bruits. HEART: Regular rhythm. I did not detect a murmur. NEUROLOGIC: Pupils are equal. Visual abarca are full. Extraocular movements intact without nystagmus. Face is symmetrical with normal sensation. Tongue midline. No drift. Normal strength in the upper and lower extremities bilaterally except the right iliopsoas and right tibialis anterior she has some slight weakness there, about a 4+/5. There is some giveaway weakness, hard to say. Fast finger movements, clumsy on the right hand. DTRs are 2+ symmetrical. Toes were downgoing bilaterally. Pinprick is intact throughout. She is not ataxic on finger to nose. She was seen by Dr. Silva in 2008 with a syncopal spell, some protrusion of the tongue, confusion, unable to give any history, possible left-sided symptoms. She had a blood transfusion because her hemoglobin was only 4.4. Carotid ultrasound was normal. MRI of the brain was normal. MRA [place] was normal. She had a large mass on her pelvic ultrasound with fibroid. There was a question of a conversion reaction. She had a markedly elevated antiphospholipid antibody, IgM 82. Lupus anticoagulant was negative. She had an EEG done at that time. A couple of small sharp spikes on the left with sleep. She also saw a psychiatrist, that she had an adjustment disorder. Nothing major. She had an echocardiogram back then mild mitral regurgitation, otherwise normal. LA size was normal. Ejection fraction 72%. A Holter monitor back in 2008. Several 1.6 second pauses, otherwise negative. No atrial fibrillation was noted. She had a carotid ultrasound today that was normal, as was an MRA [place] and a CT scan. MRI of the brain was entirely normal. I reviewed those films. No evidence for old or new stroke. MRI in 2009 was also done that was also normal. She was seen in September of 2009 with a stroke alert, abrupt weakness in the left arm and leg [place] Neurology was consulted. Evidently did not see neurology and subsequently discharged. She has had negative RPRs in the past. FRANCISCO has been negative. Antiphospholipid IgM antibodies been negative. Anti-phosphatidyl serine IgM antibody was positive at 67. A cardiolipin IgM antibody positive at 95 back in 2008. Urine drug screens have been negative. UA has been negative. Basic metabolic profile has been normal. LFTs normal. CPK, troponin negative on this admission. B12 low at 227, low in 2009 at 165, so it looks like she was probably on some injections at one time and now no longer. Folate has been normal on this admission. Thyroid is normal on this admission. HCG is normal. Hemoglobin A1c is pending. GFR is normal. LDL cholesterol was high at 112 ii 2009, pending now. Methylmalonic acid was normal in 2008. CBC is unremarkable. Sed rate was 63 in 2009. Factor V Leiden was normal at that time. ABG was normal in 2009. 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 One which in 2009 sounded like a major TIA. At this time she still has some deficit on the right side even though MRI is negative. It may be that she needs to be anticoagulated. We will recheck her anticardiolipin antibodies and for now restart her on Coumadin. I will be following her with you in the hospital. MD LESLIE Schreiber/JEAN PAUL /12:38 PM /10:00 PM
[2016-07-23 00:34] VITALS: BP 140/84; PULSE 70; RESP 18; TEMP 97.3; O2SAT 98
[2016-07-23 05:39] VITALS: BP 142/92; PULSE 66; RESP 20; TEMP 96.5; O2SAT 97
[2016-07-23] MEDS ORDERED: ASPIRIN 325 MG TAB PO SCH (08:00)
[2016-07-23] MEDS ORDERED: ASPIRIN EC 81 MG TABEC PO SCH (08:00)
[2016-07-23 08:06] LABS: INTERNATIONAL NORMALIZED RATIO 0.9 RATIO; PROTHROMBIN TIME - PATIENT 10.3 SEC (9.8-11.6)
[2016-07-23] MEDS: HEPARIN SODIUM - SQ 10,000 UNITS/ML VIAL SQ SCH (08:07)
[2016-07-23 08:10] LABS: AUTOMATED NEUTROPHIL # 1.3 TH/MM3 (1.8-7.7); BASOPHIL % 0.8 % (0.0-2.0); EOSINOPHIL # 0.3 TH/MM3 (0-0.4); EOSINOPHIL % 5.9 % (0.0-4.0); HEMATOCRIT 37.5 % (35.0-46.0); HEMO FLAGS DIFF FINAL; LYMPH % 50.5 % (9.0-44.0); LYMPHOCYTE # 2.2 TH/MM3 (1.0-4.8); MEAN CELL VOLUME 85.2 FL (80.0-100.0); MEAN CORPUSCULAR HEMOGLOBIN 27.7 PG (27.0-34.0); MEAN CORPUSCULAR HGB CONC 32.5 % (32.0-36.0); MONO % 11.5 % (0.0-8.0); NEUT % 31.3 % (16.0-70.0); PLATELET COUNT 220 TH/MM3 (150-450); RED CELL DISTRIBUTION WIDTH 13.9 % (11.6-17.2); WHITE BLOOD COUNT 4.3 TH/MM3 (4.0-11.0)
[2016-07-23 08:20] VITALS: BP 134/88; PULSE 62; RESP 18; TEMP 97.5; O2SAT 99
--- NOTE | 2016-07-23 08:29 | HHI.PR ---
Objective Vital Signs Date Time Temp Pulse Resp B/P Pulse Ox O2 Delivery O2 Flow Rate FiO2 07/23/16 08:20 97.5 62 18 134/88 99 07/23/16 05:39 96.5 66 20 142/92 97 07/23/16 00:34 97.3 70 18 140/84 98 07/22/16 22:27 73 07/22/16 20:23 97.8 64 18 129/76 98 07/22/16 17:54 96 21 07/22/16 16:00 97.3 53 16 132/81 96 07/22/16 12:51 62 16 154/92 98 07/22/16 10:58 68 16 144/89 99 Room Air 07/22/16 09:30 72 17 145/74 98 Room Air I/O 07/22/16 07/22/16 07/22/16 07/23/16 07/23/16 07/23/16 07:00 15:00 23:00 07:00 15:00 23:00 Intake Total 1040 ml 526 ml Balance 1040 ml 526 ml Intake Oral 480 ml IV Total 560 ml 526 ml # Voids 1 3 2 # Bowel Movements 0 0 Result Diagram: 07/23/16 0722 07/22/16 0745 Other Results mra neck neg Objective Remarks still weak rle ip but numbness gone walking nl Assessment and Plan Assessment and Plan imp a lot of disussion with PT and dr cam[place] and dr fierro i dw all whether she could be funtional on not denies depression and mult mri neg eeg one left sharp no hx sz anticardiolipin ab positive x2 2009 phospholipid panel i think best course is coumadin and rechecking panels and if neg now could do plavix when it comes back if neg ow coumadin for now other possibility a hemiplegic migraine type problem Jesse Goodman MD Jul 23, 2016 08:29
[2016-07-23 08:32] LABS: BICARBONATE 29.3 MEQ/L (21.0-32.0); HDL CHOLESTEROL 59.9 MG/DL (40.0-60.0); POTASSIUM 3.9 MEQ/L (3.5-5.1)
[2016-07-23 09:00] VITALS: PULSE 58
[2016-07-23] MEDS: SODIUM CHLORIDE 0.9% FLUSH 10 ML FLUSH IV FLUSH SCH (09:00)
[2016-07-23 09:28] LABS: HEMOGLOBIN A1b 1.5 %; HEMOGLOBIN Ao 85.9 %; HEMOGLOBIN LA1C 1.8 %; HEMOGLOBIN P3 3.6 %
--- NOTE | 2016-07-23 10:04 | HHI.PR ---
Subjective Remarks wants to go home today. says she has tickets for [employer] tomorrow. not interested in coumadin for now. she will f/u. Objective Vitals nad heart reg lung cta abd s/n ext no edema Vital Signs Date Time Temp Pulse Resp B/P Pulse Ox O2 Delivery O2 Flow Rate FiO2 07/23/16 08:20 97.5 62 18 134/88 99 07/23/16 05:39 96.5 66 20 142/92 97 07/23/16 00:34 97.3 70 18 140/84 98 07/22/16 22:27 73 07/22/16 20:23 97.8 64 18 129/76 98 07/22/16 17:54 96 21 07/22/16 16:00 97.3 53 16 132/81 96 07/22/16 12:51 62 16 154/92 98 07/22/16 10:58 68 16 144/89 99 Room Air 07/22/16 07/22/16 07/23/16 15:00 23:00 07:00 Intake Total 1040 ml 526 ml Balance 1040 ml 526 ml Intake Oral 480 ml IV Total 560 ml 526 ml # Voids 1 3 2 # Bowel Movements 0 0 Result Diagram: 07/23/16 0722 07/23/16 0722 Imaging Last Impressions Neck Magnetic Resonance Angiography 07/22/16 1253 Signed Impressions: Service Date/Time: Friday, July 22, 2016 13:26 - CONCLUSION: Negative for hemodynamically significant stenosis. Edmond Hall MD FACR Head Magnetic Resonance Angiography 07/22/16 0000 Signed Impressions: Service Date/Time: Friday, July 22, 2016 09:40 - CONCLUSION: Negative MRA of the brain. Edmond Hall MD FACR Head CT 07/22/16 0000 Signed Impressions: Service Date/Time: Friday, July 22, 2016 07:45 - CONCLUSION: Negative for acute process. Edmond Hall MD FACR Chest X-Ray 07/22/16 0000 Signed Impressions: Service Date/Time: Friday, July 22, 2016 07:55 - CONCLUSION: No acute disease. Edmond Hall MD FACR Carotid Artery Ultrasound 07/22/16 0000 Signed Impressions: Service Date/Time: Friday, July 22, 2016 10:14 - CONCLUSION: Negative carotid ultrasound. Edmond Hall MD FACR Brain MRI 07/22/16 0000 Signed Impressions: Service Date/Time: Friday, July 22, 2016 09:40 - CONCLUSION: Negative for ischemic changes. Borderline changes of an empty sella.. Edmond Hall MD FACR A/P Problem List: (1) Right arm weakness Status: Acute Plan: - Patient had episode of weakness in 2008. At that time neurology was not convinced of CVA and felt that patient likely had conversion disorder - CT brain (07/22/16) no acute findings - MRI brain (07/22/16) no acute findings - MRA brain (07/22/16) no acute findings - Neck MRA (07/22/16) no hemodynamically significant stenosis - Bilateral carotid ultrasound (07/22/16) no hemodynamically significant stenosis - TSH, free T4, B-12, folate, ammonia --> wnl Neurology still concerned about positive anticariolipin ab noted in 2008 and for now they recommend coumadin....then change to plavix if negative. pt wants to leave immediately. I notified neurologist who says AMA and just keep her on plavix. she can f/u office for test results and further decisions on coumadin. I advised pt we can't gaurantee no cva or neuro sx's while off coumadin. (2) HTN (hypertension) Status: Chronic Plan: -resume home meds Problem Qualifiers (1) HTN (hypertension): Qualified Code: I10 - Essential hypertension Duran Ross MD Jul 23, 2016 10:04
[2016-07-23] MEDS ORDERED: PLAV75TA29 PO (10:14)
--- NOTE | 2016-07-23 10:15 | HHI.DCPOC ---
Discharge Care Plan Diagnosis: (1) Right arm weakness (2) HTN (hypertension) Goals to Promote Your Health * To prevent worsening of your condition and complications * To maintain your health at the optimal level Directions to Meet Your Goals Take your medications as prescribed Follow your dietary instruction Follow activity as directed Keep your appointments as scheduled Take your immunizations and boosters as scheduled If your symptoms worsen call your PCP, if no PCP go to Urgent Care Center or Emergency Room Smoking is Dangerous to Your Health. Avoid second hand smoke Call the 24-hour hour crisis hotline for domestic abuse at Duran Ross MD Jul 23, 2016 10:15
[2016-07-23 10:23] LABS: ALBUMIN SPE 4.17 GM/DL (3.50-5.00); ALPHA 1 GLOBULIN 0.18 GM/DL (0.11-0.29); ALPHA 2 GLOBULIN 0.87 GM/DL (0.22-1.00); BETA GLOBULINS (SPE) 0.84 GM/DL (0.53-1.03)
--- NOTE | 2016-07-23 10:26 | MG ---
cc: RAN MAYNARD Lab No: [id number] Date: 07/22/2016 Age: 51 Sex: F Race: Hyperventilation not performed. Right-sided weakness. Aspirin, Plavix. Recording shows a symmetric 12 Hz 16 microvolt posterior rhythm and prominent theta waves are seen over the left temporal head region at epoch 39, on the transverse montage, a slight asymmetry there. She appears to fall asleep at that time and reaches stage II sleep with some sleep spindles, and does appear to have phase reversing sharp wave over T3 seen at epoch 58, when the patient is asleep with a rather large field, on the transverse montage, again at epoch 88 some prominent theta waves of the left temporal head region. Photic stimulation was performed without significant posterior driving. IMPRESSION Some left temporal theta rhythms are seen which are asymmetric and then a phase reversing sharp wave is seen with a rather large field over left frontotemporal head region, phase reversing over the mid temporal head region. Clinical correlation is needed. MD LESLIE Schreiber/PROSPER /9:31 PM /10:19 AM
--- NOTE | 2016-07-23 11:25 | EKG ---
Date Performed: 07/22/2016 Time Performed: 07:36:42 PTAGE: 51 years EKG: Sinus rhythm NONSPECIFIC T-WAVE ABNORMALITY ABNORMAL ECG PREVIOUS TRACING : 12/21/2015 17.24 DOCTOR: Tyrone Boyer Interpretating Date/Time 07/23/2016 11:22:56
[2016-07-23 12:42] VITALS: BP 132/78; PULSE 64; RESP 18; TEMP 98.2; O2SAT 98
[2016-07-23 15:54] LABS: RAPID PLASMA REAGIN SCREEN NON-REACTIVE (NON-REACTVE)
--- NOTE | 2016-07-23 16:33 | EC ---
Study Study Date:07/23/2016 STUDY CONCLUSIONS SUMMARY - Left ventricle: The cavity size was normal. Wall thickness was normal. Systolic function was normal. The estimated ejection fraction was in the range of 60% to 65%. Wall motion was normal; there were no regional wall motion abnormalities. - Mitral valve: Mild to moderate regurgitation. - Left atrium: The atrium was mildly dilated. - Tricuspid valve: Mild regurgitation. - Pulmonary arteries: PA peak pressure: 39mm Hg (S). If LV function is below 40, please consider prescribing an ACEI or ARB or document rationale for non-use. PROCEDURE DATA STUDY STATUS: Elective. Procedure: Transthoracic echocardiography. Image quality was good. Scanning was performed from the parasternal, apical, and subcostal acoustic windows. Study completion: The patient tolerated the procedure well. Transthoracic echocardiography. M-mode, complete 2D, complete spectral Doppler, and color Doppler. Patient status: Inpatient. CARDIAC ANATOMY LEFT VENTRICLE: The cavity size was normal. Wall thickness was normal. Systolic function was normal. The estimated ejection fraction was in the range of 60% to 65%. Wall motion was normal; there were no regional wall motion abnormalities. AORTIC VALVE: Trileaflet; normal thickness leaflets. Doppler: Transvalvular velocity was within the normal range. There was no stenosis. No regurgitation. AORTA: Aortic root: The aortic root was normal in size. MITRAL VALVE: Structurally normal valve. Doppler: Transvalvular velocity was within the normal range. There was no evidence for stenosis. Mild to moderate regurgitation. Peak gradient: 3mm Hg (D). LEFT ATRIUM: The atrium was mildly dilated. RIGHT VENTRICLE: The cavity size was normal. Wall thickness was normal. PULMONIC VALVE: Doppler: Transvalvular velocity was within the normal range. There was no evidence for stenosis. No regurgitation. TRICUSPID VALVE: Structurally normal valve. Doppler: Transvalvular velocity was within the normal range. Mild regurgitation. PULMONARY ARTERY: The main pulmonary artery was normal-sized. Systolic pressure was within the normal range. RIGHT ATRIUM: The atrium was normal in size. PERICARDIUM: There was no pericardial effusion. SYSTEMIC VEINS: Inferior vena cava: The vessel was normal in size. BASIC MEASUREMENTS ADULT NORMAL Left ventricle LV internal dimension, ED, chordal level, 49.3 mm 43-52 PLAX LV internal dimension, ES, chordal level, 30.7 mm 23-38 PLAX Fractional shortening, chordal level, PLAX 38 % >29 LV posterior wall thickness, ED 9.5 mm IVS/LVPW ratio, ED 0.84 <1.3 Ventricular septum Septal thickness, ED 7.99 mm Aortic valve Leaflet separation 20 mm 15-26 Right ventricle RV internal dimension, ED, PLAX 30.5 mm 19-38 BASIC MEASUREMENTS ADULT NORMAL Aortic valve Leaflet separation 20 mm 15-26 Aorta Root diameter, ED 31 mm 20-37 Left atrium Anterior-posterior dimension, ES *43 mm 19-40 LA/aortic root ratio 1.39 DOPPLER MEASUREMENTS ADULT NORMAL Main pulmonary artery Pressure, S *39 mm Hg =30 Mitral valve Peak E-wave velocity 80.5 cm/s Peak A-wave velocity 69.6 cm/s Peak gradient, D 3 mm Hg Peak E/A ratio 1.2 Tricuspid valve Regurgitant peak velocity 271 cm/s Peak RV-RA gradient, S 29 mm Hg Maximal regurgitant velocity 271 cm/s Systemic veins Estimated CVP 10 mm Hg Right ventricle RV pressure, S *39 mm Hg <30 LEGEND: Mean values are shown as u=mean value. Asterisk (*) spencer values outside specified normal range. Prepared and signed by Lb Webb [id number]
[2016-07-25 11:53] LABS: THROMBIN TIME FOR LA ND sec (13-19)
[2016-07-26 03:51] LABS: BETA2 GLYCOPROTEIN I AB IGA LESS THAN 9.0 SAU (< OR = 20)
[2016-07-27 13:52] LABS: PHOS SERINE AB IGA LESS THAN 20 U/mL (()); PHOS SERINE AB IGG LESS THAN 10 U/mL (()); PHOS SERINE AB IGM 28 U/mL (())
== END 2016-07-23 16:20 | disposition left against medical advice (07) | DRG 948 ==
LOC: NEPE 07:21 → NEDA 09:07 → N05A 13:03
PROVIDERS: ADMIT Hospitalist; ATTEND Hospitalist
DX: R53.1 Weakness (principal); I10 Essential (primary) hypertension; D64.9 Anemia, unspecified; J45.909 Unspecified asthma, uncomplicated; Z79.82 Long term (current) use of aspirin; Z86.73 Personal history of transient ischemic attack (TIA), and cerebral infarction without residual deficits; Z90.710 Acquired absence of both cervix and uterus; F40.240 Claustrophobia
CPT/HCPCS: 70450; 70544; 70548; 70551; 71010; 80048; 80053; 80061; 80307; 81001; 81240; 81241; 82140; 82550; 82607; 82746; 83036; 84165; 84439; 84443; 84484; 84702; 85025; 85240; 85300; 85303; 85306; 85384; 85610; 85613; 85730; 86146; 86147; 86148; 86592; 86850; 86900; 86901; 86902; 86920; 86922; 93005; 93306; 93880; 95819; A9579; J1644; J7030

== ENCOUNTER 2017-02-25 16:39 | Emergency (ER) | payer OTHER ==
[~2017-02-25 16:39] MED LIST changes: +PLAV75TA29 PO; -ST J81CH PO
[2017-02-25 16:42] VITALS: BP 158/86; PULSE 64; RESP 12; TEMP 98.6; O2SAT 100
--- NOTE | 2017-02-25 17:31 | RADRPT ---
EXAM DATE/TIME: 02/25/2017 17:11 [facility] COMPARISON: CT BRAIN W/O CONTRAST, July 22, 2016, 7:45. INDICATIONS : Patient complains of bilateral eye pressure and headache. RADIATION DOSE: 56.35 CTDIvol (mGy) MEDICAL HISTORY : Hypertension. Cardiovascular disease Cerebrovascular disease. SURGICAL HISTORY : Tubal ligation. Hysterectomy. ENCOUNTER: Initial ACUITY: 4 - 6 days PAIN SCALE: 10/10 LOCATION: cranial TECHNIQUE: Multiple contiguous axial images were obtained of the head. Using automated exposure control and adj ustment of the mA and/or kV according to patient size, radiation dose was kept as low as reasonably a chievable to obtain optimal diagnostic quality images. DICOM format image data is available electro nically for review and comparison. FINDINGS: CEREBRUM: The ventricles are normal for age. No evidence of midline shift, mass lesion, hemorrhage or acute in farction. No extra-axial fluid collections are seen. POSTERIOR FOSSA: The cerebellum and brainstem are intact. The 4th ventricle is midline. The cerebellopontine angle i s unremarkable. EXTRACRANIAL: The visualized portion of the orbits is intact. SKULL: The calvaria is intact. No evidence of skull fracture. CONCLUSION: No acute disease. Edmond Hall MD FACR on February 25, 2017 at 17:28 Board Certified Radiologist. This report was verified electronically.
--- NOTE | 2017-02-25 17:46 | RADRPT ---
EXAM DATE/TIME: 02/25/2017 16:59 [facility] COMPARISON: CHEST SINGLE AP, July 22, 2016, 7:55. INDICATIONS : Abnormal EKG. Chest pain. MEDICAL HISTORY : Hypertension. Stroke. SURGICAL HISTORY : Hysterectomy. Tubal ligation. ENCOUNTER: Initial ACUITY: 1 day PAIN SCORE: 1/10 LOCATION: Bilateral chest FINDINGS: A single view of the chest demonstrates the lungs to be symmetrically aerated without evidence of mas s, infiltrate or effusion. The cardiomediastinal contours are unremarkable. Osseous structures are intact. CONCLUSION: No acute disease. Edmond Hall MD FACR on February 25, 2017 at 17:44 Board Certified Radiologist. This report was verified electronically.
[2017-02-25 18:37] LABS: AUTOMATED NEUTROPHIL # 2.2 TH/MM3 (1.8-7.7); BASOPHIL % 0.4 % (0.0-2.0); EOSINOPHIL # 0.2 TH/MM3 (0-0.4); EOSINOPHIL % 3.7 % (0.0-4.0); HEMATOCRIT 36.9 % (35.0-46.0); HEMO FLAGS DIFF FINAL; LYMPH % 44.2 % (9.0-44.0); LYMPHOCYTE # 2.3 TH/MM3 (1.0-4.8); MEAN CELL VOLUME 83.9 FL (80.0-100.0); MEAN CORPUSCULAR HEMOGLOBIN 28.4 PG (27.0-34.0); MEAN CORPUSCULAR HGB CONC 33.9 % (32.0-36.0); MONO % 9.8 % (0.0-8.0); NEUT % 41.9 % (16.0-70.0); PLATELET COUNT 235 TH/MM3 (150-450); RED CELL DISTRIBUTION WIDTH 13.1 % (11.6-17.2); WHITE BLOOD COUNT 5.2 TH/MM3 (4.0-11.0)
[2017-02-25 18:50] LABS: ANION GAP 7 MEQ/L (5-15); BLOOD UREA NITROGEN 14 MG/DL (7-18); CHLORIDE 99 MEQ/L (98-107); GLOMERULAR FILTRATION RATE 84 ML/MIN (>89); MAGNESIUM 2.2 MG/DL (1.5-2.5); SODIUM (NA) 139 MEQ/L (136-145)
[2017-02-25 18:57] LABS: CREATINE KINASE 237 U/L (26-192); POTASSIUM 2.7 MEQ/L (3.5-5.1)
[2017-02-25 18:59] LABS: APTT (PATIENT) 27.6 SEC (24.3-30.1); INTERNATIONAL NORMALIZED RATIO 0.9 RATIO; PROTHROMBIN TIME - PATIENT 10.4 SEC (9.8-11.6)
[2017-02-25 19:13] LABS: CKMB 1.5 NG/ML (0.5-3.6)
[2017-02-25] MEDS ORDERED: PROPARACAINE HCL 0.5% OPHT SOLN 15 ML BTL EACH EYE ONE (20:00)
[2017-02-25] MEDS ORDERED: POTASSIUM CHLORIDE 20 MEQ CONTROLLED RELEASE TAB PO ONE (20:00)
[2017-02-25 20:40] VITALS: BP 146/84; PULSE 80; RESP 16; O2SAT 97
[2017-02-25] MEDS ORDERED: POLY10O EACH EYE (20:57)
[2017-02-25] MEDS ORDERED: POTA10CA PO (20:57)
--- NOTE | 2017-02-25 21:06 | PD ---
HPI Chief Complaint: Medical Clearance Time Seen by Provider: 19:56 Travel History International Travel<30 days: No Contact w/Intl Traveler<30days: No Traveled to known affect area: No History of Present Illness HPI 51-year-old female that presents to the ED for evaluation of eye pressure. Per patient she's had this since Saturday. She went to see her doctor today who did an EKG and show a possible abnormality which is new from previous EKG done in his office. Patient denies any chest pain or shortness of breath. Per patient she's had pressure on the thighs right worse than left. She states that she's been applying drops to her eye to help with dry and she doesn't know this is related. She stopped using them on Saturday because she started having the symptoms. She's been taking Tylenol minimal relief. Per patient the pain gets worse when she moves her right eye to the upper area. She is able to do so however. She denies any trauma. Denies using contacts. Uses glasses. Has not seen her eye doctor for this yet. She was given a referral by her doctor to go see the eye doctor but she wanted her to come here to get evaluated. She does have a history of TIAs in the past but denies any blurry vision or double vision. She denies any loss of vision. She denies any fevers chills or sweats. She denies any history of surgeries or trauma to the eyes. Pain per patient is 7 out of 10 and pressure-like. PFSH Past Medical History Hx Anticoagulant Therapy: Yes (XARELTO) Anemia: Yes Arthritis: No Asthma: Yes Blood Disorders: No (ANEMIA) Heart Rhythm Problems: No Cancer: No Cardiovascular Problems: Yes High Cholesterol: No Chemotherapy: No Chest Pain: No Congestive Heart Failure: No COPD: No Cerebrovascular Accident: Yes (2008) Diabetes: No Diminished Hearing: No Endocrine: No Gastrointestinal Disorders: No GERD: No Glaucoma: No Genitourinary: No Hepatitis: No Hiatal Hernia: No Hypertension: Yes Immune Disorder: No Implanted Vascular Access Dvce: No Kidney Stones: No Medical other: Yes (ANEMIA WITH MULT TRANSFUSIONS) Musculoskeletal: No Neurologic: Yes (HX OF STROKE 2008, TIA 2009, RESIDUAL L SIDE WEAKNESS--MINOR) Psychiatric: Yes ("SOMETIMES" CLAUSTROPHOBIC) Reproductive: Yes (ENLARGED FIBROID UTERUS, MENORRHAGIA, ANEMIA, AND DYSMENORRHEA) Respiratory: Yes (ASTHMA) Migraines: No Radiation Therapy: No Renal Failure: No Seizures: No Sleep Apnea: No Thyroid Disease: No Ulcer: No ?: Not : 2 Para: 2 Tubal Ligation: Yes Past Surgical History Abdominal Surgery: No AICD: No Cardiac Surgery: No Ear Surgery: No Endocrine Surgery: No Eye Surgery: No Genitourinary Surgery: No Gynecologic Surgery: Yes (TUBAL LIGATION, UTERINE ABLATION ) Hysterectomy: Yes Joint Replacement: No Neurologic Surgery: No Oral Surgery: No Pacemaker: No Thoracic Surgery: No Social History Alcohol Use: No Tobacco Use: No Substance Use: No Allergies-Medications (Allergen,Severity, Reaction): Coded Allergies: No Known Allergies (Verified , 12/21/15) Reported Meds & Prescriptions Reported Meds & Active Scripts Active Potassium Chloride ER (Potassium Chloride) 10 Meq Cap 10 Meq PO DAILY 5 Days Polytrim Opth Drops (Polymyxin/Trimethoprim Sulfate) 10,000-0.1 Unit/Ml-% Soln 2 Drop EACH EYE Q6HR 10 Days Plavix (Clopidogrel Bisulfate) 75 Mg Tab 75 Mg PO DAILY Lisinopril 10 mg (Lisinopril) 10 Mg Tab 1 Tab PO DAILY Review of Systems Except as stated in HPI: all other systems reviewed are Neg Physical Exam Narrative GENERAL: SKIN: Warm and dry. HEAD: Atraumatic. Normocephalic. EYES: Pupils equal and round 4 mm reactive to light and accommodation. No scleral icterus. No injection or drainage. EOM intact bilaterally. Peripheral vision intact bilaterally. IOP's are 16, 14, 16 on the right, 18, 19, 19 on the left. Fluorescein stain did reveal possible inflammation to the left cornea as well as the right but no obvious sign of dendritic lesions or foreign body. Eversion of the eyelids reveal no sign of foreign bodies. Funduscopic test revealed no sign of papilledema or vessel disease that could be seen. ENT: No nasal bleeding or discharge. Mucous membranes pink and moist. Tongue is midline. No uvula deviation. NECK: Trachea midline. No JVD. CARDIOVASCULAR: Regular rate and rhythm. No murmurs, S3, S4. RESPIRATORY: No accessory muscle use. Clear to auscultation. Breath sounds equal bilaterally. GASTROINTESTINAL: Abdomen soft, non-tender, nondistended. Hepatic and splenic margins not palpable. MUSCULOSKELETAL: Extremities without clubbing, cyanosis, or edema. No obvious deformities. Full range of motion of the upper and lower extremities bilaterally. 2+ pulses bilaterally. NEUROLOGICAL: Awake and alert. No obvious cranial nerve deficits. Motor grossly within normal limits. Five out of 5 muscle strength in the arms and legs. Normal speech. PSYCHIATRIC: Appropriate mood and affect; insight and judgment normal. Data Data Last Documented VS Vital Signs Date Time Temp Pulse Resp B/P (MAP) Pulse Ox O2 Delivery O2 Flow Rate FiO2 02/25/17 20:57 80 16 02/25/17 20:40 146/84 (104) 97 Room Air 02/25/17 16:42 98.6 Orders Orders Electrocardiogram (02/25/17 16:52) Basic Metabolic Panel (Bmp) (02/25/17 16:52) Ckmb (Isoenzyme) Profile (02/25/17 16:52) Complete Blood Count With Diff (02/25/17 16:52) Magnesium (Mg) (02/25/17 16:52) Prothrombin Time / Inr (Pt) (02/25/17 16:52) Act Partial Throm Time (Ptt) (02/25/17 16:52) Troponin I (02/25/17 16:52) Ct Brain W/O Iv Contrast(Rout) (02/25/17 ) Westergren Sedimentation Rate (02/25/17 16:53) Chest, Pa & Lat (02/25/17 16:52) CKMB (02/25/17 17:56) CKMB% (02/25/17 17:56) Proparacaine 0.5% Opth Soln (Alcaine 0.5 (02/25/17 20:00) Potassium Chloride (Kcl) (02/25/17 20:00) Ed Discharge Order (02/25/17 20:58) Labs Laboratory Tests Test 02/25/17 17:56 White Blood Count 5.2 TH/MM3 Red Blood Count 4.40 MIL/MM3 Hemoglobin 12.5 GM/DL Hematocrit 36.9 % Mean Corpuscular Volume 83.9 FL Mean Corpuscular Hemoglobin 28.4 PG Mean Corpuscular Hemoglobin Concent 33.9 % Red Cell Distribution Width 13.1 % Platelet Count 235 TH/MM3 Mean Platelet Volume 8.7 FL Neutrophils (%) (Auto) 41.9 % Lymphocytes (%) (Auto) 44.2 % Monocytes (%) (Auto) 9.8 % Eosinophils (%) (Auto) 3.7 % Basophils (%) (Auto) 0.4 % Neutrophils # (Auto) 2.2 TH/MM3 Lymphocytes # (Auto) 2.3 TH/MM3 Monocytes # (Auto) 0.5 TH/MM3 Eosinophils # (Auto) 0.2 TH/MM3 Basophils # (Auto) 0.0 TH/MM3 CBC Comment DIFF FINAL Differential Comment Erythrocyte Sedimentation Rate 28 mm/hr Prothrombin Time 10.4 SEC Prothromb Time International Ratio 0.9 RATIO Activated Partial Thromboplast Time 27.6 SEC Blood Urea Nitrogen 14 MG/DL Creatinine 0.86 MG/DL Random Glucose 97 MG/DL Calcium Level 9.3 MG/DL Magnesium Level 2.2 MG/DL Sodium Level 139 MEQ/L Potassium Level 2.7 MEQ/L Chloride Level 99 MEQ/L Carbon Dioxide Level 33.0 MEQ/L Anion Gap 7 MEQ/L Estimat Glomerular Filtration Rate 84 ML/MIN Total Creatine Kinase 237 U/L Creatine Kinase MB 1.5 NG/ML Creatine Kinase MB % 0.6 % Troponin I LESS THAN 0.02 NG/ML MDM Medical Decision Making Medical Screen Exam Complete: Yes Emergency Medical Condition: Yes Medical Record Reviewed: Yes Interpretation(s) CBC & BMP Diagram 02/25/17 17:56 Calcium Level 9.3, Magnesium Level 2.2 Last Impressions Chest X-Ray 02/25/17 1652 Signed Impressions: Service Date/Time: Saturday, February 25, 2017 16:59 - CONCLUSION: No acute disease. Edmond Hall MD FACR Head CT 02/25/17 0000 Signed Impressions: Service Date/Time: Saturday, February 25, 2017 17:11 - CONCLUSION: No acute disease. Edmond Hall MD FACR EKG shows sinus rhythm with no sign of acute ischemia or arrhythmia read by me and attending. Troponin and CK-MB negative. Coags within normal limits. Differential Diagnosis Conjunctivitis versus glaucoma versus eye pain versus CVA versus TIA versus abnormal EKG versus was likely ACS Narrative Course 51-year-old female that presents to the ED for evaluation of eye pain. Patient was properly examined and was found to have signs and symptoms of unclear etiology at this time. Labs and imaging were done in triage were negative for acute disease. More specifically no sign of ACS. I did review the patient's EKG from here to the one she had earlier this year and he was the same. Do not see any signs of changes. She has no ST elevation or any sign of deformity. My attending agrees with this. Chest x-ray and CT were negative for acute disease. It did for evaluation of her eyes and did not reveal any sign of glaucoma with normal IUP is. She does appear to have inflammation of possible conjunctivitis. Patient has been applying drops to her eye and this could be related to the symptoms. We'll start the patient on Polytrim ophthalmic drops to cover for bacterial infection as well as international exchange coordinator potassium. She was given 40 mEq of potassium here and she will be given a prescription for 10 mEq for the next 5 days. She understands reasons to come back. She has a referral to the physical therapy professor. She was told that she needs to follow with physical therapy professor this week for further evaluation and treatment if needed. She agrees with this plan. He would care. All questions were answered to the best of my ability. See ED worsening symptoms. Diagnosis Primary Impression: Conjunctivitis Qualified Codes: H10.33 - Unspecified acute conjunctivitis, bilateral Additional Impressions: Eye pain Qualified Codes: H57.11 - Ocular pain, right eye Hypokalemia Patient Instructions: General Instructions Additional Instructions: Take Tylenol for pain as needed. Take medication as prescribed. Follow-up with physical therapy professor this week. See ED for any worsening symptoms especially to have any blurred vision or loss of vision or worsening pain. Do not put anything else on the eye other than prescription drugs. Med/Other Pt SpecificInfo: Prescription(s) given Scripts Potassium Chloride ER (Potassium Chloride ER) 10 Meq Cap 10 MEQ PO DAILY for Electrolyte Replacement for 5 Days, #5 CAP 0 Refills Prov: Dipti Webb MD 02/25/17 Polymyxin B-Trimethoprim Opth Drops (Polytrim Opth Drops) 10,000-0.1 Unit/Ml-% Soln 2 DROP EACH EYE Q6HR for Mgmt Bacterial Infection for 10 Days, #1 BOTTLE 0 Refills Prov: Dipti Webb MD 02/25/17 Disposition: 01 DISCHARGE HOME Condition: Stable Bryan Hadley Feb 25, 2017 21:06
--- NOTE | 2017-02-26 19:06 | EKG ---
Date Performed: 02/25/2017 Time Performed: 20:24:05 PTAGE: 51 years EKG: SINUS BRADYCARDIA NONSPECIFIC T-WAVE ABNORMALITY BORDERLINE ECG Compared to prior tracing n o significant change PREVIOUS TRACING : 07/22/2016 07.36 DOCTOR: Idalmis Cruz Interpretating Date/Time 02/26/2017 19:04:57
== END 2017-02-25 21:20 | disposition home or self-care (01) ==
LOC: NEPC 16:39
DX: H10.33 Unspecified acute conjunctivitis, bilateral (principal); H57.11 Ocular pain, right eye; E87.6 Hypokalemia; I10 Essential (primary) hypertension; Z79.01 Long term (current) use of anticoagulants; Z86.73 Personal history of transient ischemic attack (TIA), and cerebral infarction without residual deficits
CPT/HCPCS: 70450; 71020; 80048; 82550; 82552; 83735; 84484; 85025; 85610; 85652; 85730; 93005; 99285

== ENCOUNTER 2017-04-14 20:16 | Emergency (ER) | payer OTHER ==
[~2017-04-14] VITALS: Ht 167.6 cm; Wt 83.0 kg
[~2017-04-14 20:16] MED LIST changes: +POLY10O EACH EYE; +POTA10CA PO
[2017-04-14 20:18] VITALS: BP 135/79; PULSE 63; RESP 16; TEMP 98.1; O2SAT 99
[2017-04-14] MEDS ORDERED: diphenhydrAMINE HCL 50 MG/ML VIAL IM ONE (20:45)
[2017-04-14] MEDS ORDERED: LORazepam 2 MG/ML VIAL IM ONE (20:45)
--- NOTE | 2017-04-14 20:45 | PD ---
HPI Chief Complaint: Injury Time Seen by Provider: 20:40 Travel History International Travel<30 days: No Contact w/Intl Traveler<30days: No Traveled to known affect area: No History of Present Illness HPI 51-year-old female here with left fifth toe pain. Prior to arrival she actually stubbed her toe on the fireplace. She has throbbing pain in the left fifth toe, constant, worse with movement or palpation. Denies any other injuries and she has no other complaints. PFSH Past Medical History Hx Anticoagulant Therapy: Yes (XARELTO) Anemia: Yes Arthritis: No Asthma: Yes Blood Disorders: No (ANEMIA) Heart Rhythm Problems: No Cancer: No Cardiovascular Problems: Yes High Cholesterol: No Chemotherapy: No Chest Pain: No Congestive Heart Failure: No COPD: No Cerebrovascular Accident: Yes (HX OF STROKE 2008, TIA 2009, RESIDUAL L SIDE WEAKNESS--MINOR) Diabetes: No Diminished Hearing: No Endocrine: No Gastrointestinal Disorders: No GERD: No Glaucoma: No Genitourinary: No Hepatitis: No Hiatal Hernia: No Hypertension: Yes Immune Disorder: No Implanted Vascular Access Dvce: No Kidney Stones: No Medical other: Yes Musculoskeletal: No Neurologic: Yes Psychiatric: Yes ("SOMETIMES" CLAUSTROPHOBIC) Reproductive: Yes Respiratory: Yes (ASTHMA) Migraines: No Radiation Therapy: No Renal Failure: No Seizures: No Sleep Apnea: No Thyroid Disease: No Ulcer: No ?: Not : 2 Para: 2 Tubal Ligation: Yes Past Surgical History Abdominal Surgery: No AICD: No Cardiac Surgery: No Ear Surgery: No Endocrine Surgery: No Eye Surgery: No Genitourinary Surgery: No Gynecologic Surgery: Yes (UTERINE ABLATION ) Hysterectomy: Yes Joint Replacement: No Neurologic Surgery: No Oral Surgery: No Pacemaker: No Thoracic Surgery: No Other Surgery: Yes Social History Alcohol Use: No Tobacco Use: No Substance Use: No Allergies-Medications (Allergen,Severity, Reaction): Coded Allergies: No Known Allergies (Verified Adverse Reaction, Unknown, 04/14/17) Reported Meds & Prescriptions Reported Meds & Active Scripts Active Reported Vitamin B-12 (Cyanocobalamin) 1,000 Mcg Tab 1,000 Mcg PO DAILY [cholesteol med] PO HS Lasix (Furosemide) 20 Mg Tab 20 Mg PO DIRECTED Lisinopril 5 Mg Tab 5 Mg PO DAILY Xarelto (Rivaroxaban) 20 Mg Tab 20 Mg PO DAILY Review of Systems General / Constitutional: No: Fever, Chills Musculoskeletal: Positive: Pain Skin: Positive Other (denies open wounds) Physical Exam Narrative GENERAL: Well-nourished female in no acute distress SKIN: Warm and dry. CARDIOVASCULAR: Regular rate and rhythm. No murmur appreciated. RESPIRATORY: No accessory muscle use. Clear to auscultation. Breath sounds equal bilaterally. MUSCULOSKELETAL: Tender to palpation left fifth toe which is ecchymotic. NEUROLOGICAL: Awake and alert. No obvious cranial nerve deficits. Motor grossly within normal limits. Normal speech. Data Data Last Documented VS Vital Signs Date Time Temp Pulse Resp B/P (MAP) Pulse Ox O2 Delivery O2 Flow Rate FiO2 04/14/17 20:18 98.1 63 16 135/79 (97) 99 Room Air Orders Orders Lorazepam Inj (Ativan Inj) (04/14/17 20:45) Diphenhydramine Inj (Benadryl Inj) (04/14/17 20:45) Toe (Min 2vws) (04/14/17 ) Ed Discharge Order (04/14/17 22:10) [facility] Medical Decision Making Medical Screen Exam Complete: Yes Emergency Medical Condition: Yes Medical Record Reviewed: Yes Differential Diagnosis Toe sprain, contusion, dislocation, fracture Narrative Course Toe x-ray was performed revealing no acute abnormalities. She appears to have a mild sprain to her left fifth toe. She is stable for discharge. Diagnosis Primary Impression: Toe sprain Additional Instructions: Tylenol or Motrin for pain. Ice the affected area several times a day 15 minutes at a time. Return for any emergent medical conditions. Med/Other Pt SpecificInfo: No Change to Meds Disposition: 01 DISCHARGE HOME Condition: Stable Odin Aquino Apr 14, 2017 20:45
[2017-04-14] MEDS ORDERED: [UNRECOGNIZED DRUG - OTHER] PO (21:06)
[2017-04-14] MEDS ORDERED: XARE20TA PO (21:06)
[2017-04-14] MEDS ORDERED: FURO1TAB62 PO (21:06)
[2017-04-14] MEDS ORDERED: VITA10002 PO (21:06)
[2017-04-14] MEDS ORDERED: LISI-519 PO (21:06)
--- NOTE | 2017-04-14 22:06 | RADRPT ---
EXAM DATE/TIME: 04/14/2017 20:52 [facility] COMPARISON: No previous studies available for comparison. INDICATIONS : Hit toe on fire place, pain in left 5th toe. MEDICAL HISTORY : None. SURGICAL HISTORY : None. ENCOUNTER: Initial ACUITY: 1 day PAIN SCORE: 1/10 LOCATION: Left toe FINDINGS: 3 views of the left fifth digit. No evidence of acute fracture. Small enthesophytes are noted at the bases of the proximal phalanges. Small dorsal middle phalanx osteophyte. CONCLUSION: No evidence of fracture. Elmer Rod MD on April 14, 2017 at 22:04 Board Certified Radiologist. This report was verified electronically.
== END 2017-04-14 22:56 | disposition home or self-care (01) ==
LOC: NEPD 20:16
DX: S93.505A Unspecified sprain of left lesser toe(s), initial encounter (principal); W22.09XA Striking against other stationary object, initial encounter
CPT/HCPCS: 73660; 99283

== ENCOUNTER 2017-10-01 19:17 | Emergency (ER) | payer SELFPAY ==
[~2017-10-01] VITALS: Ht 167.6 cm; Wt 87.0 kg
[~2017-10-01 19:17] MED LIST changes: +FURO1TAB62 PO; -LISI-360 PO; +LISI-519 PO; -PLAV75TA29 PO; -POLY10O EACH EYE; -POTA10CA PO; +VITA10002 PO; +XARE20TA PO; +[UNRECOGNIZED DRUG - OTHER] PO
[2017-10-01 19:31] VITALS: BP 164/86; PULSE 90; RESP 16; TEMP 100.9; O2SAT 99
[2017-10-01 20:49] VITALS: BP_SYST 163; BP_SYST 167; BP_DIAS 83; BP_DIAS 96
[2017-10-01 20:53] VITALS: BP 163/83; PULSE 87; RESP 18; O2SAT 97
--- NOTE | 2017-10-01 20:53 | PD ---
HPI Chief Complaint: Chest Pain Time Seen by Provider: 20:36 Travel History International Travel<30 days: No Contact w/Intl Traveler<30days: No Traveled to known affect area: No History of Present Illness HPI This is a 50-year-old female presents for evaluation of chest pain. She reports that she congestion. Approximately 10 AM she developed chest pain. She describes as a sharp/stabbing pain in the center of her chest that radiates into the left back and shoulder. Pain is constant but worse with movement and deep inspiration. Some associated dyspnea with exertion. She has had some chills and myalgias at home and has a temperature 100.9 in triage. She denies cough. She denies sore throat, abdominal pain, nausea vomiting, lower extremity edema. History of CVA, on xarelto, hypertension. PFSH Past Medical History Hx Anticoagulant Therapy: Yes (XARELTO) Anemia: Yes Arthritis: No Asthma: Yes Blood Disorders: No (ANEMIA) Heart Rhythm Problems: No Cancer: No Cardiovascular Problems: Yes High Cholesterol: No Chemotherapy: No Chest Pain: No Congestive Heart Failure: No COPD: No Cerebrovascular Accident: Yes (HX OF STROKE 2008, TIA 2009, RESIDUAL L SIDE WEAKNESS--MINOR) Diabetes: No Diminished Hearing: No Endocrine: No Gastrointestinal Disorders: No GERD: No Glaucoma: No Genitourinary: No Hepatitis: No Hiatal Hernia: No Hypertension: Yes Immune Disorder: No Implanted Vascular Access Dvce: No Kidney Stones: No Musculoskeletal: No Neurologic: Yes Psychiatric: Yes ("SOMETIMES" CLAUSTROPHOBIC) Reproductive: Yes Respiratory: Yes (ASTHMA) Migraines: No Radiation Therapy: No Renal Failure: No Seizures: No Sleep Apnea: No Thyroid Disease: No Ulcer: No ?: Not : 2 Para: 2 Tubal Ligation: Yes Past Surgical History Abdominal Surgery: No AICD: No Cardiac Surgery: No Ear Surgery: No Endocrine Surgery: No Eye Surgery: No Genitourinary Surgery: No Gynecologic Surgery: Yes (UTERINE ABLATION ) Hysterectomy: Yes Joint Replacement: No Neurologic Surgery: No Oral Surgery: No Pacemaker: No Thoracic Surgery: No Other Surgery: Yes Social History Alcohol Use: No Tobacco Use: No Substance Use: No Allergies-Medications (Allergen,Severity, Reaction): Coded Allergies: No Known Allergies (Verified Adverse Reaction, Unknown, 10/01/17) Reported Meds & Prescriptions Reported Meds & Active Scripts Active Flonase Nasal Price (Fluticasone Nasal Price) 50 Mcg/Act Price 100 Mcg EACH NARE BID Reported Vitamin B-12 (Cyanocobalamin) 1,000 Mcg Tab 1,000 Mcg PO DAILY [cholesteol med] PO HS Lasix (Furosemide) 20 Mg Tab 20 Mg PO DIRECTED Lisinopril 5 Mg Tab 5 Mg PO DAILY Xarelto (Rivaroxaban) 20 Mg Tab 20 Mg PO DAILY Review of Systems Except as stated in HPI: all other systems reviewed are Neg Physical Exam Narrative GENERAL: Well-developed well-nourished female no acute distress SKIN: Warm and dry. HEAD: Atraumatic. Normocephalic. EYES: Pupils equal and round. No scleral icterus. No injection or drainage. ENT: No nasal bleeding or discharge. Mucous membranes pink and moist. NECK: Trachea midline. No JVD. CARDIOVASCULAR: Regular rate and rhythm. No murmur appreciated. RESPIRATORY: No accessory muscle use. Clear to auscultation. Breath sounds equal bilaterally. GASTROINTESTINAL: Abdomen soft, non-tender, nondistended. Hepatic and splenic margins not palpable. MUSCULOSKELETAL: No obvious deformities. No clubbing. No cyanosis. No edema. NEUROLOGICAL: Awake and alert. No obvious cranial nerve deficits. Motor grossly within normal limits. Normal speech. PSYCHIATRIC: Appropriate mood and affect; insight and judgment normal. Data Data Last Documented VS Vital Signs Date Time Temp Pulse Resp B/P (MAP) Pulse Ox O2 Delivery O2 Flow Rate FiO2 10/01/17 22:34 100.0 10/01/17 20:53 83 98 10/01/17 20:53 18 Room Air Orders Orders Electrocardiogram (10/01/17 20:47) B-Type Natriuretic Peptide (10/01/17 20:47) Ckmb (Isoenzyme) Profile (10/01/17 20:47) Complete Blood Count With Diff (10/01/17 20:47) Magnesium (Mg) (10/01/17 20:47) Prothrombin Time / Inr (Pt) (10/01/17 20:47) Act Partial Throm Time (Ptt) (10/01/17 20:47) Troponin I (10/01/17 20:47) Chest, Single Ap (10/01/17 20:47) Ecg Monitoring (10/01/17 20:47) Bilateral Bp Monitoring (10/01/17 20:47) Iv Access Insert/Monitor (10/01/17 20:47) Oximetry (10/01/17 20:47) Oxygen Administration (10/01/17 20:47) Sodium Chloride 0.9% Flush (Ns Flush) (10/01/17 21:00) Cta Thor Abd Aorta W Iv C W3d (10/01/17 20:47) Comprehensive Metabolic Panel (10/01/17 20:47) Influenzae A/B Antigen (10/01/17 20:47) Lactic Acid Sepsis Protocol (10/01/17 20:47) Urinalysis - C+S If Indicated (10/01/17 20:47) Blood Culture (10/01/17 20:47) Morphine Inj (Morphine Inj) (10/01/17 21:45) Ondansetron Odt (Zofran Odt) (10/01/17 21:45) CKMB (10/01/17 20:58) CKMB% (10/01/17 20:58) Iohexol 350 Inj (Omnipaque 350 Inj) (10/01/17 22:30) Ed Discharge Order (10/01/17 22:45) Labs Laboratory Tests Test 10/01/17 20:00 10/01/17 20:58 Urine Color LIGHT-YELLOW Urine Turbidity CLEAR Urine pH 7.5 Urine Specific [place] 1.010 Urine Protein NEG mg/dL Urine Glucose (UA) NEG mg/dL Urine Ketones NEG mg/dL Urine Occult Blood MOD Urine Nitrite NEG Urine Bilirubin NEG Urine Urobilinogen LESS THAN 2.0 MG/DL Urine Leukocyte Esterase NEG Urine RBC 18 /hpf Urine WBC 1 /hpf Microscopic Urinalysis Comment CATH-CULT NOT IND White Blood Count 6.9 TH/MM3 Red Blood Count 4.57 MIL/MM3 Hemoglobin 12.8 GM/DL Hematocrit 38.1 % Mean Corpuscular Volume 83.4 FL Mean Corpuscular Hemoglobin 28.0 PG Mean Corpuscular Hemoglobin Concent 33.6 % Red Cell Distribution Width 13.5 % Platelet Count 239 TH/MM3 Mean Platelet Volume 8.2 FL Neutrophils (%) (Auto) 71.9 % Lymphocytes (%) (Auto) 15.6 % Monocytes (%) (Auto) 9.6 % Eosinophils (%) (Auto) 2.6 % Basophils (%) (Auto) 0.3 % Neutrophils # (Auto) 4.9 TH/MM3 Lymphocytes # (Auto) 1.1 TH/MM3 Monocytes # (Auto) 0.7 TH/MM3 Eosinophils # (Auto) 0.2 TH/MM3 Basophils # (Auto) 0.0 TH/MM3 CBC Comment DIFF FINAL Differential Comment Prothrombin Time 9.9 SEC Prothromb Time International Ratio 1.0 RATIO Activated Partial Thromboplast Time 26.0 SEC Blood Urea Nitrogen 12 MG/DL Creatinine 0.93 MG/DL Random Glucose 87 MG/DL Total Protein 8.3 GM/DL Albumin 3.9 GM/DL Calcium Level 9.2 MG/DL Magnesium Level 2.1 MG/DL Alkaline Phosphatase 99 U/L Aspartate Amino Transf (AST/SGOT) 20 U/L Alanine Aminotransferase (ALT/SGPT) 28 U/L Total Bilirubin 0.7 MG/DL Sodium Level 137 MEQ/L Potassium Level 3.3 MEQ/L Chloride Level 101 MEQ/L Carbon Dioxide Level 27.1 MEQ/L Anion Gap 9 MEQ/L Estimat Glomerular Filtration Rate 77 ML/MIN Lactic Acid Level 1.0 mmol/L Total Creatine Kinase 119 U/L Creatine Kinase MB 0.5 NG/ML Troponin I LESS THAN 0.02 NG/ML B-Type Natriuretic Peptide 14 PG/ML MDM Medical Decision Making Medical Screen Exam Complete: Yes Emergency Medical Condition: Yes Medical Record Reviewed: Yes Differential Diagnosis Acute coronary syndrome, pneumonia, bronchitis, aortic dissection, pulmonary embolism, pneumothorax, hemothorax, pericarditis, myocarditis, influenza Narrative Course 52-year-old female with 1 day history of sharp stabbing substernal chest pain that radiates into the back and shoulder, low-grade fevers, nasal congestion. The patient was placed on ECG monitoring pulse oximetry. A 12 EKG was obtained. Lab work, chest x-ray, CTA of the aorta have been ordered. CTA aorta reveals CONCLUSION: 1. Negative for dissection. Mild prominence ascending aorta. No significant coronary calcifications. CBC is unremarkable. Urinalysis reveals moderate blood otherwise in the marked. CMP reveals potassium 3.3 otherwise unremarkable. Cardiac enzymes within normal limits. Lactic acid within normal limits. The patient's low- grade fever likely has a viral respiratory etiology. Her chest pain is quite atypical. Her heart score is 3. Reassuringly she reports that she had a normal exercise stress test 1-2 years ago and in March she is scheduled for a chemical stress test but it was delayed because she had an upper respiratory infection. At this point in time the patient was offered admission into the chest pain center for serial cardiac enzymes and rule out purposes but she is declining and prefer to follow-up with her primary care physician to discuss outpatient stress testing and this appears quite reasonable given her atypical presentation. Her nasal congestion will be treated with Flonase. Discussed signs and symptoms that would warrant returning to the emergency room. She is stable for discharge. Diagnosis Primary Impression: Rhinitis Additional Impression: Atypical chest pain Additional Instructions: Medication as prescribed. [id number] Tylenol as needed for pain per dosing instructions on the bottle. As discussed, follow-up in the next week with your primary care physician. Return for any acutely new or worsening symptoms. Med/Other Pt SpecificInfo: Prescription(s) given Scripts Fluticasone Nasal Price (Flonase Nasal Price) 50 Mcg/Act Price 100 MCG EACH NARE BID for Allergies, #1 BOTTLE 0 Refills Prov: Kemar Diaz MD 10/01/17 Disposition: 01 DISCHARGE HOME Condition: Stable Odin Aquino Oct 01, 2017 20:53
[2017-10-01] MEDS ORDERED: SODIUM CHLORIDE 0.9% FLUSH 10 ML FLUSH IVF PRN (21:00)
--- NOTE | 2017-10-01 21:18 | RADRPT ---
EXAM DATE: 10/01/2017 9:16 PM EDT AGE/SEX: 52 years / Female INDICATIONS: Chest pain from back to anterior chest. CLINICAL DATA: This is the patient's initial encounter. Patient reports that signs and symptoms have been present for 1 day and indicates a pain score of 6/10. MEDICAL/SURGICAL HISTORY: None. None. COMPARISON: [facility] – [place], CHEST SINGLE AP, 02/25/2017. . FINDINGS: A single AP view of the chest demonstrates the lungs to be symmetrically aerated without evidence of mass, infiltrate or effusion. The cardiomediastinal contours are unremarkable. Osseous structures a re intact. CONCLUSION: Negative for acute process. Electronically signed by: Edmond Hall MD 10/01/2017 9:17 PM EDT
[2017-10-01 21:24] LABS: AUTOMATED NEUTROPHIL # 4.9 TH/MM3 (1.8-7.7); BASOPHIL % 0.3 % (0.0-2.0); EOSINOPHIL # 0.2 TH/MM3 (0-0.4); EOSINOPHIL % 2.6 % (0.0-4.0); HEMATOCRIT 38.1 % (35.0-46.0); HEMOGLOBIN 12.8 GM/DL (11.6-15.3); LYMPH % 15.6 % (9.0-44.0); LYMPHOCYTE # 1.1 TH/MM3 (1.0-4.8); MEAN CELL VOLUME 83.4 FL (80.0-100.0); MEAN CORPUSCULAR HGB CONC 33.6 % (32.0-36.0); MEAN PLATELET VOLUME 8.2 FL (7.0-11.0); MONO % 9.6 % (0.0-8.0); MONOCYTE # 0.7 TH/MM3 (0-0.9); NEUT % 71.9 % (16.0-70.0); PLATELET COUNT 239 TH/MM3 (150-450); RED BLOOD COUNT 4.57 MIL/MM3 (4.00-5.30); RED CELL DISTRIBUTION WIDTH 13.5 % (11.6-17.2); WHITE BLOOD COUNT 6.9 TH/MM3 (4.0-11.0)
[2017-10-01 21:44] LABS: ALBUMIN 3.9 GM/DL (3.4-5.0); AST (GOT) 20 U/L (15-37); BICARBONATE 27.1 MEQ/L (21.0-32.0); BLOOD UREA NITROGEN 12 MG/DL (7-18); CALCIUM 9.2 MG/DL (8.5-10.1); CHLORIDE 101 MEQ/L (98-107); CREATININE 0.93 MG/DL (0.50-1.00); GLOMERULAR FILTRATION RATE 77 ML/MIN (>89); GLUCOSE,RANDOM 87 MG/DL (74-106); MAGNESIUM 2.1 MG/DL (1.5-2.5); SODIUM (NA) 137 MEQ/L (136-145)
[2017-10-01 21:45] LABS: ALT (GPT) 28 U/L (10-53); PROTHROMBIN TIME - PATIENT 9.9 SEC (9.8-11.6)
[2017-10-01] MEDS ORDERED: MORPHINE SULFATE 4 MG/ML INJ IV PUSH ONE (21:45)
[2017-10-01] MEDS ORDERED: ONDANSETRON ODT 4 MG TAB PO ONE (21:45)
[2017-10-01 21:49] LABS: ALKALINE PHOSPHATASE 99 U/L (45-117); TOTAL BILIRUBIN ADULT 0.7 MG/DL (0.2-1.0); TOTAL PROTEIN 8.3 GM/DL (6.4-8.2); TROPONIN I LESS THAN 0.02 NG/ML (0.02-0.05)
[2017-10-01 22:10] LABS: BILIRUBIN, URINE NEG (NEG); BLOOD, URINE MOD (NEG); GLUCOSE,URINE NEG (NEG); KETONE, URINE NEG (NEG); NITRITE,URINE NEG (NEG); PH, URINE 7.5 (5.0-8.5); URINE COLOR LIGHT-YELLOW (YELLW/STRAW); URINE LEUKOCYTE ESTERASE NEG (NEG)
[2017-10-01] MEDS ORDERED: IOHEXOL 350 MG/ML 10 ML VIAL (for RAD DIAG) IVCONTRAST ONE (22:30)
[2017-10-01 22:34] VITALS: TEMP 100
--- NOTE | 2017-10-01 22:35 | RADRPT ---
EXAM DATE: 10/01/2017 10:29 PM EDT AGE/SEX: 52 years / Female INDICATIONS: Chest pain. CLINICAL DATA: This is the patient's initial encounter. Patient reports that signs and symptoms have been present for 2 days and indicates a pain score of 7/10. MEDICAL/SURGICAL HISTORY: Hypertension. Anemia. Stroke. Colitis. Hysterectomy. Tubal ligation . RADIATION DOSE: 9.10 CTDI (mGy) COMPARISON: No prior exams available for comparison. TECHNIQUE: Volumetric scanning was performed using a multi-row detector CT scanner during bolus infu estrada of 100 ml Omnipaque 350 (iohexol) nonionic water-soluble contrast as a single exam dose. The d aurora was post processed with a variety of visualization algorithms including full volume maximum inten sity projection, multi-planar sliding thin slab reformation, curved planar reformation, and surface r endering techniques. Using automated exposure control and adjustment of the mA and/or kV according t o patient size, radiation dose was kept as low as reasonably achievable to obtain optimal diagnostic quality images. FINDINGS: The ascending aorta is mildly dilated to 2.96 cm.. There are no significant coronary calcifications. Descending aorta is normal size. Abdominal aorta is normal. Celiac and superior mesenteric artery are widely patent. Renal arteries are widely patent. Right and left iliac arteries are widely patent. Co mmon femoral arteries are patent. There is no evidence for central pulmonary emboli There are no suspicious lung lesions identified. There is no pleural effusion. There is no axillary or mediastinal adenopathy appreciated. There is no pericardial effusion Gallstones are present in a benign-appearing gallbladder. Spleen, pancreas, adrenals and kidneys are unremarkable Pelvic contents. Unremarkable Review of bone windows reveals only degenerative changes. CONCLUSION: 1. Negative for dissection. Mild prominence ascending aorta. No significant coronary calcifications. Electronically signed by: Edmond Hall MD 10/01/2017 10:33 PM EDT
[2017-10-01] MEDS ORDERED: FLUT1SPR5 EACH NARE (22:45)
--- NOTE | 2017-10-01 23:18 | PD ---
Data Data Last Documented VS Vital Signs Date Time Temp Pulse Resp B/P (MAP) Pulse Ox O2 Delivery O2 Flow Rate FiO2 10/01/17 22:34 100.0 10/01/17 20:53 83 98 10/01/17 20:53 18 Room Air Orders Orders Electrocardiogram (10/01/17 20:47) B-Type Natriuretic Peptide (10/01/17 20:47) Ckmb (Isoenzyme) Profile (10/01/17 20:47) Complete Blood Count With Diff (10/01/17 20:47) Magnesium (Mg) (10/01/17 20:47) Prothrombin Time / Inr (Pt) (10/01/17 20:47) Act Partial Throm Time (Ptt) (10/01/17 20:47) Troponin I (10/01/17 20:47) Chest, Single Ap (10/01/17 20:47) Ecg Monitoring (10/01/17 20:47) Bilateral Bp Monitoring (10/01/17 20:47) Iv Access Insert/Monitor (10/01/17 20:47) Oximetry (10/01/17 20:47) Oxygen Administration (10/01/17 20:47) Sodium Chloride 0.9% Flush (Ns Flush) (10/01/17 21:00) Cta Thor Abd Aorta W Iv C W3d (10/01/17 20:47) Comprehensive Metabolic Panel (10/01/17 20:47) Influenzae A/B Antigen (10/01/17 20:47) Lactic Acid Sepsis Protocol (10/01/17 20:47) Urinalysis - C+S If Indicated (10/01/17 20:47) Blood Culture (10/01/17 20:47) Morphine Inj (Morphine Inj) (10/01/17 21:45) Ondansetron Odt (Zofran Odt) (10/01/17 21:45) CKMB (10/01/17 20:58) CKMB% (10/01/17 20:58) Iohexol 350 Inj (Omnipaque 350 Inj) (10/01/17 22:30) Ed Discharge Order (10/01/17 22:45) Labs Laboratory Tests Test 10/01/17 20:00 10/01/17 20:58 Urine Color LIGHT-YELLOW Urine Turbidity CLEAR Urine pH 7.5 Urine Specific [place] 1.010 Urine Protein NEG mg/dL Urine Glucose (UA) NEG mg/dL Urine Ketones NEG mg/dL Urine Occult Blood MOD Urine Nitrite NEG Urine Bilirubin NEG Urine Urobilinogen LESS THAN 2.0 MG/DL Urine Leukocyte Esterase NEG Urine RBC 18 /hpf Urine WBC 1 /hpf Microscopic Urinalysis Comment CATH-CULT NOT IND White Blood Count 6.9 TH/MM3 Red Blood Count 4.57 MIL/MM3 Hemoglobin 12.8 GM/DL Hematocrit 38.1 % Mean Corpuscular Volume 83.4 FL Mean Corpuscular Hemoglobin 28.0 PG Mean Corpuscular Hemoglobin Concent 33.6 % Red Cell Distribution Width 13.5 % Platelet Count 239 TH/MM3 Mean Platelet Volume 8.2 FL Neutrophils (%) (Auto) 71.9 % Lymphocytes (%) (Auto) 15.6 % Monocytes (%) (Auto) 9.6 % Eosinophils (%) (Auto) 2.6 % Basophils (%) (Auto) 0.3 % Neutrophils # (Auto) 4.9 TH/MM3 Lymphocytes # (Auto) 1.1 TH/MM3 Monocytes # (Auto) 0.7 TH/MM3 Eosinophils # (Auto) 0.2 TH/MM3 Basophils # (Auto) 0.0 TH/MM3 CBC Comment DIFF FINAL Differential Comment Prothrombin Time 9.9 SEC Prothromb Time International Ratio 1.0 RATIO Activated Partial Thromboplast Time 26.0 SEC Blood Urea Nitrogen 12 MG/DL Creatinine 0.93 MG/DL Random Glucose 87 MG/DL Total Protein 8.3 GM/DL Albumin 3.9 GM/DL Calcium Level 9.2 MG/DL Magnesium Level 2.1 MG/DL Alkaline Phosphatase 99 U/L Aspartate Amino Transf (AST/SGOT) 20 U/L Alanine Aminotransferase (ALT/SGPT) 28 U/L Total Bilirubin 0.7 MG/DL Sodium Level 137 MEQ/L Potassium Level 3.3 MEQ/L Chloride Level 101 MEQ/L Carbon Dioxide Level 27.1 MEQ/L Anion Gap 9 MEQ/L Estimat Glomerular Filtration Rate 77 ML/MIN Lactic Acid Level 1.0 mmol/L Total Creatine Kinase 119 U/L Creatine Kinase MB 0.5 NG/ML Troponin I LESS THAN 0.02 NG/ML B-Type Natriuretic Peptide 14 PG/ML MDM Supervised Visit with JOSÉ LUIS: Yes Narrative Course The history, exam, and medical decision-making in the associated mid-level provider note were completed with my assistance. I reviewed and agree with the findings presented. I attest that I had a [id number] encounter with the patient on the same day, and personally performed and documented my assessment and findings in the medical record. *My assessment and Findings: 52-year-old woman, history of thrombophilia on Xarelto, presents with sinus congestion some atypical chest pain symptoms. History only minimally suggestive of ACS. Some risk factors including family history. EKG no ST changes, nonspecific T-wave flattening. No change compared to previous EKG from February 2017. Despite some risk factors, heart scores low risk. Discussed this with the patient. Did offer admission chest pain center. Patient had a exercise stress test, and was reportedly, followed up with a nuclear stress test. Unclear if that exercise stress test the abnormality she has a primary physician would prefer to follow-up with them which I think is reasonable. She agrees to return for any worsening symptoms. Diagnosis Primary Impression: Rhinitis Additional Impression: Atypical chest pain Patient Instructions: General Instructions Departure Forms: Tests/Procedures Additional Instruction: Medication as prescribed. [id number] Tylenol as needed for pain per dosing instructions on the bottle. As discussed, follow-up in the next week with your primary care physician. Return for any acutely new or worsening symptoms. Scripts Fluticasone Nasal [place] (Flonase Nasal [place]) 50 Mcg/Act [place] 100 MCG EACH NARE BID for Allergies, #1 BOTTLE 0 Refills Prov: Kemar Diaz MD 10/01/17 Disposition: 01 DISCHARGE HOME Condition: Stable Kemar Diaz MD Oct 01, 2017 23:18
--- NOTE | 2017-10-02 09:09 | EKG ---
Date Performed: 10/01/2017 Time Performed: 20:48:15 PTAGE: 52 years EKG: Sinus rhythm LOW QRS VOLTAGE IN PRECORDIAL LEADS NONSPECIFIC T-WAVE ABNORMALITY BORDERLINE ECG NO PREVIOUS TRACING DOCTOR: Kemar Wheeler Interpretating Date/Time 10/02/2017 09:08:18
== END 2017-10-01 23:15 | disposition home or self-care (01) ==
LOC: NEPC 19:17
DX: J31.0 Chronic rhinitis (principal); R07.89 Other chest pain; R06.09 Other forms of dyspnea; I10 Essential (primary) hypertension; Z79.01 Long term (current) use of anticoagulants; Z79.899 Other long term (current) drug therapy; Z86.73 Personal history of transient ischemic attack (TIA), and cerebral infarction without residual deficits
CPT/HCPCS: 71045; 71275; 74174; 80053; 81001; 82550; 82552; 83605; 83735; 83880; 84484; 85025; 85610; 85730; 87040; 87804; 93005; 96374; 99285; J2270; Q9967